=== PATIENT | female | born 1935 | race Caucasian/White ===

== ENCOUNTER → 2017-05-23 | Outpatient (CLI) | payer MEDICARE, OTHER ==
[2017-05-23 07:32] LABS: Urine RBC None Seen /hpf (0 - 4)
[2017-05-23 07:36] LABS: CONDITION Y; Hemoglobin 11.8 g/dL (12.2-16.2); Mean Corpuscular Hemoglobin 34.8 pg (28.0-32.0); Mean Corpuscular Hgb Conc. 35.1 g/dL (32.0-36.0); Mean Platelet Volume 6.8 fL (7.4-10.4); Neutrophils # (auto) 2.1 uL
[2017-05-23 07:39] LABS: Basophils # (auto) 0 uL; Basophils % (auto) 0.6 % (0.0-2.0); Eosinophils # (auto) 0.4 uL; Eosinophils % (auto) 7.7 % (0.0-7.0); Hematocrit 33.5 % (36.0-46.0); Lymphocytes # (auto) 1.4 uL; Lymphocytes % (auto) 30.2 % (10.0-50.0); Mean Corpuscular Volume 99.1 fL (80.0-100.0); Monocytes # (auto) 0.7 uL; Monocytes % (auto) 15.6 % (0.0-12.0); Neutrophils % (auto) 45.9 % (37.0-80.0); Platelet Count (auto) 295 10^3/uL (140-450); Red Cell Distribution Width 12.8 % (11.6-16.0); White Blood Cell 4.7 10^3/uL (4.4-10.8)
[2017-05-23 08:03] LABS: Albumin 3.4 g/dL (3.4-5.0); BUN/Creatinine Ratio 21.1; Bilirubin, Total 0.3 mg/dL (0.2-1.0); Calcium 8.9 mg/dL (8.5-10.1); Total Protein 7.6 g/dL (6.4-8.2)
[2017-05-23 08:19] LABS: Urine Bilirubin Negative (Negative); Urine Blood Negative /uL (Negative); Urine Color Yellow (Yellow); Urine Glucose Normal (Normal); Urine Ketone Negative (Negative); Urine Nitrite Negative (Negative); Urine Squamous Epithelial Cell FEW /hpf (<5); Urine Urobilinogen Normal (Negative); Urine pH 5.5 (5.0-8.0)
== END | disposition home or self-care (01) ==
LOC: LAB 07:10
PROVIDERS: ATTEND Family Medicine
DX: E11.21 Type 2 diabetes mellitus with diabetic nephropathy (principal); I10 Essential (primary) hypertension; E03.9 Hypothyroidism, unspecified; R56.9 Unspecified convulsions
CPT/HCPCS: 36415; 80053; 80061; 80185; 81001; 82043; 83036; 84443; 85025

== ENCOUNTER → 2017-10-03 | Outpatient (CLI) | payer MEDICARE, OTHER | END | disposition home or self-care (01) | LOC: LAB 10:48 | PROVIDERS: ATTEND Family Medicine | DX: H54.7 Unspecified visual loss (principal); E11.9 Type 2 diabetes mellitus without complications; I10 Essential (primary) hypertension | CPT/HCPCS: 36415; 85652; 86141 ==

== ENCOUNTER 2018-06-06 08:19 | Inpatient (IN) | payer MEDICARE, OTHER ==
[2018-06-06] VITALS (17 sets, daily range): BP systolic 138–182; BP diastolic 53–108
[~2018-06-06] VITALS: Ht 167.6 cm; Wt 63.6 kg
[2018-06-06] MEDS ORDERED: SODIUM CHLORIDE 0.9% 500 ML IV ONE (09:00)
[2018-06-06] MEDS ORDERED: SODIUM CHLORIDE 0.9% 1,000 ML IV ONE (10:06)
[2018-06-06 10:08] LABS: Hemoglobin 9.3 g/dL (12.2-16.2); White Blood Cell 3.8 10^3/uL (4.4-10.8)
[2018-06-06 10:10] LABS: Hematocrit 27.7 % (36.0-46.0); Mean Corpuscular Hemoglobin 34.7 pg (28.0-32.0); Mean Corpuscular Hgb Conc. 33.5 g/dL (32.0-36.0); Mean Corpuscular Volume 103.5 fL (80.0-100.0); Platelet Count (auto) 288 10^3/uL (140-450); Red Blood Cells 2.68 10^6/uL (4.0-5.20); Red Cell Distribution Width 13.8 % (11.8-14.3)
[2018-06-06 10:16] LABS: Basophils % (manual) 0 (0.0-2.0); Blast Cells 0; Eosinophils % (manual) 0 (0-7); Metamyelocytes % 0; Myelocytes % 0; Promyelocytes % 0; Reactive Lymphocytes 0
[2018-06-06 10:38] LABS: INR 2.92 (0.9-1.15); Partial Thromboplastin Time 41.7 sec (23.78-33.04); Prothrombin Time 29.4 sec (9.27-12.13)
[2018-06-06 10:39] LABS: Alanine Aminotransferase 43 U/L (13-56); Albumin 2.2 g/dL (3.4-5.0); Alkaline Phosphatase 54 U/L (45-117); Anion Gap 19 (5-15); Aspartate Aminotransferase 292 U/L (15-37); BUN/Creatinine Ratio 23.1; Bilirubin, Total 0.6 mg/dL (0.2-1.0); Calcium 8.2 mg/dL (8.5-10.1); Carbon Dioxide 16 mmol/L (21-32); Chloride 104 mmol/L (98-107); GFR African American 8 mL/min; GFR Non-African American 7 mL/min; Glucose 159 mg/dL (74-106); Potassium 3.8 mmol/L (3.5-5.1); Sodium 139 mmol/L (136-145); Total Protein 6.7 g/dL (6.4-8.2)
[2018-06-06 10:42] LABS: Blood Urea Nitrogen 146 mg/dL (7-18)
[2018-06-06 10:43] LABS: Magnesium 1.6 mg/dL (1.6-2.6)
[2018-06-06 10:51] LABS: Band Neutrophils % (manual) 2; Lymphocytes % (manual) 30 (10.0-50.0); Monocytes % (manual) 10 (0-12)
[2018-06-06] MEDS ORDERED: DEXTROSE (50%) 50ML SYRG IV PRN (11:15)
[2018-06-06] MEDS: ACCU-CHEK COMFORT CURVE STRIP VI SCH ×3 (11:30→22:00)
[2018-06-06] MEDS: InsuLIN REG 1unit/0.01ml Soln (100units/ml) SC SCH ×3 (11:30→22:39)
[2018-06-06 11:36] LABS: Urine Bacteria FEW /hpf (None Seen); Urine Blood 1+ /uL (Negative); Urine Specific Gravity 1.023 (1.001-1.035); Urine WBC 18 /hpf (0 - 5)
[2018-06-06] MEDS: Glucerna Carbsteady SHAKE Vanilla 8oz PO SCH ×2 (12:00→18:00)
[2018-06-06] MEDS ORDERED: DIAZEPAM 5 MG TAB PO PRN (12:00)
[2018-06-06] MEDS ORDERED: LEVOTHYROXINE SODIUM 50 MCG TAB PO ONE (12:00)
[2018-06-06] MEDS: SODIUM CHLORIDE 0.9% 1,000 ML IV SCH (12:06)
[2018-06-06] MEDS ORDERED: LORazepam 2MG/ML-1ML VIAL IV PRN (12:15)
[2018-06-06] MEDS ORDERED: NITROGLYCERIN 0.4 MG SL TAB SL PRN (12:15)
[2018-06-06] MEDS ORDERED: ONDANSETRON HCL 4 MG/2 ML VIAL IV PRN (12:15)
[2018-06-06] MEDS ORDERED: MORPHINE SULF INJ 2 MG/ML SYRINGE 1ML IV PRN ×2 (12:15)
[2018-06-06] MEDS ORDERED: ACETAMINOPHEN 325 MG TAB PO PRN (12:15)
[2018-06-06] MEDS: FENOFIBRIC ACID 135 MG PO SCH (12:30)
[2018-06-06] MEDS ORDERED: CARV20CA (12:35)
[2018-06-06] MEDS ORDERED: SERT-160 (12:35)
[2018-06-06] MEDS ORDERED: CLOP75TA41 (12:35)
[2018-06-06] MEDS ORDERED: DIAZ5TAB3 (12:35)
[2018-06-06] MEDS ORDERED: CHOL135C6 (12:35)
[2018-06-06] MEDS ORDERED: PHE100C (12:35)
[2018-06-06] MEDS ORDERED: MICARDIS (12:35)
[2018-06-06] MEDS ORDERED: ATOR40TA52 (12:35)
[2018-06-06] MEDS ORDERED: HYDR-4072 (12:35)
[2018-06-06] MEDS ORDERED: LEVO200T7 (12:35)
[2018-06-06] MEDS: IPRATROPIUM BROM 0.5 MG/2.5ML INH SOL NEB SCH ×2 (13:29→22:09)
[2018-06-06] MEDS: ALBUTEROL SULF 2.5 MG/0.5ML(0.5%) NEB SOLN NEB SCH ×2 (13:30→22:09)
[2018-06-06] MEDS ORDERED: cefTRIAXone 1GM/10ml IVPUSH 10 ML IV ONE (14:30)
[2018-06-06 14:40] LABS: Hematocrit 24.7 % (36.0-46.0)
[2018-06-06 14:41] LABS: Hemoglobin 8.7 g/dL (12.2-16.2)
[2018-06-06] MEDS ORDERED: metroNIDAZOLE 500MG/100ML 100 ML IV SCH (15:00)
[2018-06-06] MEDS ORDERED: PHYTONADIONE (VIT K)10 MG/ML 1ML VIAL SUBCUT ONE (15:15)
[2018-06-06] MEDS ORDERED: LORazepam 2MG/ML-1ML VIAL IV ONE (16:30)
[2018-06-06 16:46] LABS: Lactic Acid w/Reflex 2.6 mmol/L (0.4-2.0)
[2018-06-06] MEDS ORDERED: LORazepam 0.5 MG TAB PO ONE (18:00)
[2018-06-06] MEDS: CALCIUM W/VIT D (600MG/400IU) TAB PO SCH (19:41)
[2018-06-06 19:53] LABS: Hematocrit 20.4 % (36.0-46.0); Hemoglobin 7.1 g/dL (12.2-16.2)
[2018-06-06 20:22] LABS: BUN/Creatinine Ratio 28.2; Calcium 8.2 mg/dL (8.5-10.1); Potassium 3.4 mmol/L (3.5-5.1)
[2018-06-06] MEDS: PHENYTOIN SODIUM 100 MG CAP PO SCH (22:00)
[2018-06-06] MEDS: ATORVASTATIN 20 MG TAB PO SCH (22:00)
[2018-06-06] MEDS ORDERED: PANTOPRAZOLE 40 MG/10 ML VIAL IV SCH (22:00)
[2018-06-07] VITALS (16 sets, daily range): BP systolic 127–158; BP diastolic 42–87
[2018-06-07] MEDS ORDERED: DILTIAZEM HCL 25 MG/5 ML VIAL IV ONE (03:00)
[2018-06-07 05:49] LABS: Basophils # (auto) 0 uL; Eosinophils # (auto) 0 uL; Lymphocytes # (auto) 0.9 uL; Monocytes # (auto) 0.5 uL; Red Cell Distribution Width 16.1 % (11.8-14.3); White Blood Cell 3.2 10^3/uL (4.4-10.8)
[2018-06-07 05:54] LABS: Basophils % (auto) 0.7 % (0.0-2.0); Eosinophils % (auto) 1.2 % (0.0-7.0); Hematocrit 18.8 % (36.0-46.0); Lymphocytes % (auto) 27.5 % (10.0-50.0); Mean Corpuscular Hemoglobin 34.7 pg (28.0-32.0); Mean Corpuscular Hgb Conc. 34.5 g/dL (32.0-36.0); Mean Corpuscular Volume 100.4 fL (80.0-100.0); Monocytes % (auto) 16.1 % (0.0-12.0); Neutrophils # (auto) 1.7 uL; Neutrophils % (auto) 54.5 % (37.0-80.0); Nucleated Red Blood Cells % 0.3 %; Platelet Count (auto) 178 10^3/uL (140-450); Red Blood Cells 1.88 10^6/uL (4.0-5.20)
[2018-06-07 06:00] LABS: Albumin 2.6 g/dL (3.4-5.0); Bilirubin, Total 0.6 mg/dL (0.2-1.0); Total Protein 6.5 g/dL (6.4-8.2)
[2018-06-07 06:02] LABS: Hemoglobin 6.5 g/dL (12.2-16.2)
[2018-06-07 06:23] LABS: Potassium 2.9 mmol/L (3.5-5.1)
[2018-06-07] MEDS: IPRATROPIUM BROM 0.5 MG/2.5ML INH SOL NEB SCH ×3 (06:30→22:27)
[2018-06-07] MEDS: ALBUTEROL SULF 2.5 MG/0.5ML(0.5%) NEB SOLN NEB SCH ×3 (06:30→22:27)
[2018-06-07] MEDS: SODIUM CHLORIDE 0.9% 1,000 ML IV SCH ×2 (06:30→21:26)
[2018-06-07 06:31] LABS: BUN/Creatinine Ratio 34.4
[2018-06-07] MEDS: ACCU-CHEK COMFORT CURVE STRIP VI SCH ×4 (06:42→22:57)
[2018-06-07] MEDS: InsuLIN REG 1unit/0.01ml Soln (100units/ml) SC SCH ×4 (06:43→23:22)
[2018-06-07 07:27] LABS: INR 1.28 (0.9-1.15); Prothrombin Time 13.5 sec (9.27-12.13)
[2018-06-07] MEDS: CALCIUM W/VIT D (600MG/400IU) TAB PO SCH ×2 (08:00→17:43)
[2018-06-07] MEDS: Glucerna Carbsteady SHAKE Vanilla 8oz PO SCH ×3 (08:00→17:43)
[2018-06-07] MEDS ORDERED: NALOXONE HCL 0.4 MG/ML VIAL ONE (08:23)
[2018-06-07] MEDS ORDERED: FLUMAZENIL 0.1 MG/ML INJ 10ML MDV IV ONE (08:23)
[2018-06-07] MEDS ORDERED: SODIUM CHLORIDE LOCK 10 ML ONE (08:23)
[2018-06-07] MEDS ORDERED: LIDOCAINE VISCOUS 2% 15ML UD ONE (08:23)
[2018-06-07] MEDS ORDERED: POTASSIUM CHL 20 Meq TABLET PO ONE (08:30)
[2018-06-07] MEDS ORDERED: MICARDIS HCT PO SCH (10:00)
[2018-06-07] MEDS: MULTIPLE VITAMIN TAB PO SCH (10:00)
[2018-06-07] MEDS ORDERED: PANTOPRAZOLE 40 MG TAB PO SCH (10:00)
[2018-06-07] MEDS: fentaNYL CITRATE 100 MCG/2 ML VL ONE ×2 (10:41→10:44)
[2018-06-07] MEDS: MIDAZOLAM HCL 5 MG/ML-1ML VIAL ONE ×2 (10:41→10:44)
[2018-06-07] MEDS: metroNIDAZOLE 500MG/100ML 100 ML IV SCH ×2 (11:58→17:43)
[2018-06-07] MEDS: cefTRIAXone 1GM/10ml IVPUSH 10 ML IV SCH (11:58)
[2018-06-07] MEDS: FENOFIBRIC ACID 135 MG PO SCH (12:00)
[2018-06-07] MEDS: PHENYTOIN SODIUM 100 MG CAP PO SCH ×2 (12:33→22:57)
[2018-06-07] MEDS: SERTRALINE HCL 50 MG TAB PO SCH (12:38)
[2018-06-07 13:21] LABS: Hemoglobin 9.2 g/dL (12.2-16.2)
[2018-06-07 13:23] LABS: Hematocrit 25.7 % (36.0-46.0)
[2018-06-07] MEDS: ATORVASTATIN 20 MG TAB PO SCH (22:00)
[2018-06-08] VITALS (7 sets, daily range): BP systolic 142–163; BP diastolic 74–88
[2018-06-08] MEDS: metroNIDAZOLE 500MG/100ML 100 ML IV SCH ×3 (01:27→18:48)
[2018-06-08] MEDS: HYDROcodone-ACET 10/325MG TAB PO PRN ×3 (01:32→20:30)
[2018-06-08] MEDS: IPRATROPIUM BROM 0.5 MG/2.5ML INH SOL NEB SCH ×3 (06:02→22:00)
[2018-06-08] MEDS: ACCU-CHEK COMFORT CURVE STRIP VI SCH ×4 (06:02→22:41)
[2018-06-08] MEDS: ALBUTEROL SULF 2.5 MG/0.5ML(0.5%) NEB SOLN NEB SCH ×3 (06:02→22:00)
[2018-06-08] MEDS: InsuLIN REG 1unit/0.01ml Soln (100units/ml) SC SCH ×4 (06:03→22:41)
[2018-06-08 06:28] LABS: Mean Corpuscular Hgb Conc. 35.9 g/dL (32.0-36.0); Platelet Count (auto) 230 10^3/uL (140-450)
[2018-06-08 06:36] LABS: Hematocrit 25.9 % (36.0-46.0); Hemoglobin 9.3 g/dL (12.2-16.2); Mean Corpuscular Hemoglobin 34.5 pg (28.0-32.0); Mean Corpuscular Volume 96.1 fL (80.0-100.0); Red Cell Distribution Width 16.9 % (11.8-14.3)
[2018-06-08 06:46] LABS: Basophils % (manual) 0 (0.0-2.0); Blast Cells 0; Metamyelocytes % 0; Myelocytes % 0; Promyelocytes % 0; Reactive Lymphocytes 0
[2018-06-08 06:53] LABS: Albumin 2.9 g/dL (3.4-5.0); Bilirubin, Total 0.6 mg/dL (0.2-1.0); Calcium 8.2 mg/dL (8.5-10.1)
[2018-06-08 07:14] LABS: Potassium 2.5 mmol/L (3.5-5.1)
[2018-06-08 07:15] LABS: BUN/Creatinine Ratio 40.2
[2018-06-08 07:48] LABS: Band Neutrophils % (manual) 4; Eosinophils % (manual) 2 (0-7); Lymphocytes % (manual) 23 (10.0-50.0); Monocytes % (manual) 9 (0-12)
[2018-06-08] MEDS: Glucerna Carbsteady SHAKE Vanilla 8oz PO SCH ×3 (09:59→18:48)
[2018-06-08] MEDS ORDERED: FAMOTIDINE 20 MG TAB PO SCH (10:00)
[2018-06-08] MEDS: MULTIPLE VITAMIN TAB PO SCH (10:06)
[2018-06-08] MEDS: SERTRALINE HCL 50 MG TAB PO SCH (10:06)
[2018-06-08] MEDS: cefTRIAXone 1GM/10ml IVPUSH 10 ML IV SCH (10:06)
[2018-06-08] MEDS: PHENYTOIN SODIUM 100 MG CAP PO SCH ×2 (10:06→21:35)
[2018-06-08] MEDS: PANTOPRAZOLE 40 MG TAB PO SCH (10:06)
[2018-06-08] MEDS: CALCIUM W/VIT D (600MG/400IU) TAB PO SCH ×2 (10:06→18:49)
[2018-06-08] MEDS: FENOFIBRIC ACID 135 MG PO SCH (12:00)
[2018-06-08] MEDS: POTASSIUM CHL 20MEQ/100ML 100 ML IV SCH ×3 (12:02→16:35)
[2018-06-08] MEDS ORDERED: cloNIDine HCL 0.1 MG TAB PO PRN (12:15)
[2018-06-08] MEDS: SODIUM CHLORIDE 0.9% 1,000 ML IV SCH (15:23)
[2018-06-08 17:53] LABS: BUN/Creatinine Ratio 43.8; Calcium 7.7 mg/dL (8.5-10.1)
[2018-06-08 17:56] LABS: Potassium 2.8 mmol/L (3.5-5.1)
[2018-06-08] MEDS: ATORVASTATIN 20 MG TAB PO SCH (21:35)
[2018-06-09] VITALS (7 sets, daily range): BP systolic 142–162; BP diastolic 69–84
[2018-06-09] MEDS: TEMAZEPAM 15 MG CAP PO PRN (00:12)
[2018-06-09] MEDS: metroNIDAZOLE 500MG/100ML 100 ML IV SCH ×3 (01:47→17:47)
[2018-06-09 05:27] LABS: Hematocrit 23.9 % (36.0-46.0); Hemoglobin 8.6 g/dL (12.2-16.2); Mean Corpuscular Hemoglobin 34.8 pg (28.0-32.0); Mean Corpuscular Hgb Conc. 35.8 g/dL (32.0-36.0); Mean Corpuscular Volume 97.1 fL (80.0-100.0); Platelet Count (auto) 183 10^3/uL (140-450); Red Blood Cells 2.46 10^6/uL (4.0-5.20); Red Cell Distribution Width 16.4 % (11.8-14.3)
[2018-06-09 05:39] LABS: Basophils % (manual) 0 (0.0-2.0); Blast Cells 0; Metamyelocytes % 0; Myelocytes % 0; Promyelocytes % 0; Reactive Lymphocytes 0
[2018-06-09 05:45] LABS: Albumin 2.4 g/dL (3.4-5.0); BUN/Creatinine Ratio 47.5; Bilirubin, Total 0.5 mg/dL (0.2-1.0); Calcium 7.3 mg/dL (8.5-10.1); Total Protein 6.3 g/dL (6.4-8.2)
[2018-06-09 05:51] LABS: Potassium 2.9 mmol/L (3.5-5.1)
[2018-06-09] MEDS: ALBUTEROL SULF 2.5 MG/0.5ML(0.5%) NEB SOLN NEB SCH ×3 (06:02→22:45)
[2018-06-09] MEDS: IPRATROPIUM BROM 0.5 MG/2.5ML INH SOL NEB SCH ×3 (06:02→22:45)
[2018-06-09] MEDS: SODIUM CHLORIDE 0.9% 1,000 ML IV SCH (06:12)
[2018-06-09] MEDS: InsuLIN REG 1unit/0.01ml Soln (100units/ml) SC SCH ×4 (06:14→21:46)
[2018-06-09] MEDS: ACCU-CHEK COMFORT CURVE STRIP VI SCH ×4 (06:14→21:46)
[2018-06-09] MEDS ORDERED: POTASSIUM CHL 20 Meq TABLET PO ONE (06:45)
[2018-06-09 07:16] LABS: Band Neutrophils % (manual) 4; Eosinophils % (manual) 4 (0-7); Monocytes % (manual) 8 (0-12)
[2018-06-09 07:17] LABS: Lymphocytes % (manual) 29 (10.0-50.0)
[2018-06-09] MEDS: CALCIUM W/VIT D (600MG/400IU) TAB PO SCH ×2 (09:58→17:46)
[2018-06-09] MEDS: cefTRIAXone 1GM/10ml IVPUSH 10 ML IV SCH (09:58)
[2018-06-09] MEDS: PHENYTOIN SODIUM 100 MG CAP PO SCH ×2 (09:59→21:45)
[2018-06-09] MEDS: MAGNESIUM SULFATE 1GM/100ML 100 ML IV SCH ×2 (09:59→11:43)
[2018-06-09] MEDS: MULTIPLE VITAMIN TAB PO SCH (09:59)
[2018-06-09] MEDS: PANTOPRAZOLE 40 MG TAB PO SCH (09:59)
[2018-06-09] MEDS: SERTRALINE HCL 50 MG TAB PO SCH (09:59)
[2018-06-09] MEDS ORDERED: LEVOFLOXACIN 500MG 100 ML IV ONE (10:15)
[2018-06-09] MEDS: Glucerna Carbsteady SHAKE Vanilla 8oz PO SCH ×3 (11:42→17:48)
[2018-06-09] MEDS: SODIUM BICARBONATE 50ML VIAL 50 ML in SOD CHL 0.45% WITH 20MEQ KCL 1,000 ML IV SCH ×2 (11:43→20:30)
[2018-06-09] MEDS: FENOFIBRIC ACID 135 MG PO SCH ×2 (11:44→12:00)
[2018-06-09] MEDS: HYDROcodone-ACET 10/325MG TAB PO PRN (12:24)
[2018-06-09] MEDS: ATORVASTATIN 20 MG TAB PO SCH (21:45)
[2018-06-10] MEDS: metroNIDAZOLE 500MG/100ML 100 ML IV SCH ×3 (02:01→17:43)
[2018-06-10] MEDS ORDERED: SOD CHL 0.45% WITH 20MEQ KCL 1,000 ML IV ONE (02:38)
[2018-06-10] MEDS ORDERED: SODIUM BICARBONATE 8.4 % INJ 50ML VIAL IV ONE (02:39)
[2018-06-10] MEDS: SODIUM BICARBONATE 50ML VIAL 50 ML in SOD CHL 0.45% WITH 20MEQ KCL 1,000 ML IV SCH ×2 (02:44→16:50)
[2018-06-10 05:41] LABS: Hemoglobin 8.5 g/dL (12.2-16.2)
[2018-06-10 05:44] LABS: Hematocrit 23.6 % (36.0-46.0); Mean Corpuscular Hgb Conc. 36.1 g/dL (32.0-36.0); Mean Corpuscular Volume 97.1 fL (80.0-100.0); Platelet Count (auto) 178 10^3/uL (140-450); Red Blood Cells 2.43 10^6/uL (4.0-5.20); Red Cell Distribution Width 16.1 % (11.8-14.3); White Blood Cell 7.2 10^3/uL (4.4-10.8)
[2018-06-10 05:56] LABS: Basophils % (manual) 0 (0.0-2.0); Blast Cells 0; Metamyelocytes % 0; Myelocytes % 0; Promyelocytes % 0; Reactive Lymphocytes 0
[2018-06-10 06:12] LABS: Potassium 3.5 mmol/L (3.5-5.1)
[2018-06-10 06:13] LABS: Albumin 2.3 g/dL (3.4-5.0); BUN/Creatinine Ratio 47.4; Bilirubin, Total 0.4 mg/dL (0.2-1.0); Calcium 7.1 mg/dL (8.5-10.1); Phosphorus 1.3 mg/dL (2.5-4.90); Total Protein 6.1 g/dL (6.4-8.2)
[2018-06-10] MEDS: ACCU-CHEK COMFORT CURVE STRIP VI SCH ×4 (06:36→21:50)
[2018-06-10] MEDS: InsuLIN REG 1unit/0.01ml Soln (100units/ml) SC SCH ×4 (06:37→21:51)
[2018-06-10] MEDS: IPRATROPIUM BROM 0.5 MG/2.5ML INH SOL NEB SCH ×3 (07:06→21:46)
[2018-06-10] MEDS: ALBUTEROL SULF 2.5 MG/0.5ML(0.5%) NEB SOLN NEB SCH ×3 (07:06→21:46)
[2018-06-10 08:17] LABS: Band Neutrophils % (manual) 4; Eosinophils % (manual) 5 (0-7); Lymphocytes % (manual) 20 (10.0-50.0); Monocytes % (manual) 13 (0-12)
[2018-06-10 09:00] VITALS: BP 130/73
[2018-06-10] MEDS: LEVOFLOXACIN 250MG 50 ML IV SCH (09:21)
[2018-06-10] MEDS: PHENYTOIN SODIUM 100 MG CAP PO SCH ×2 (09:22→21:50)
[2018-06-10] MEDS: MULTIPLE VITAMIN TAB PO SCH (09:22)
[2018-06-10] MEDS: cefTRIAXone 1GM/10ml IVPUSH 10 ML IV SCH (09:22)
[2018-06-10] MEDS: PANTOPRAZOLE 40 MG TAB PO SCH (09:22)
[2018-06-10] MEDS: CALCIUM W/VIT D (600MG/400IU) TAB PO SCH ×2 (09:22→17:43)
[2018-06-10] MEDS: SERTRALINE HCL 50 MG TAB PO SCH (09:23)
[2018-06-10] MEDS: Glucerna Carbsteady SHAKE Vanilla 8oz PO SCH ×3 (09:24→18:00)
[2018-06-10] MEDS: HYDROcodone-ACET 10/325MG TAB PO PRN (11:10)
[2018-06-10] MEDS: FENOFIBRIC ACID 135 MG PO SCH (11:25)
[2018-06-10] MEDS ORDERED: POTASSIUM PHOSPHATE 44 MEQ in D5W 5% 250 ML IV ONE (11:30)
[2018-06-10 12:31] LABS: Protein, Urine 6.4 mg/dL (0.0-11.9)
[2018-06-10 12:34] LABS: % Iron Saturation 32.4 % (15-50)
[2018-06-10 13:00] VITALS: BP 140/59
[2018-06-10 17:00] VITALS: BP 149/76
[2018-06-10] MEDS: ATORVASTATIN 20 MG TAB PO SCH (21:50)
[2018-06-10 22:06] VITALS: BP 150/63
[2018-06-11] MEDS: metroNIDAZOLE 500MG/100ML 100 ML IV SCH ×2 (01:52→09:17)
[2018-06-11] MEDS: SODIUM BICARBONATE 50ML VIAL 50 ML in SOD CHL 0.45% WITH 20MEQ KCL 1,000 ML IV SCH ×3 (04:00→21:33)
[2018-06-11 05:04] VITALS: BP 141/57
[2018-06-11 06:32] LABS: Phosphorus 2.6 mg/dL (2.5-4.90)
[2018-06-11 06:36] LABS: Albumin 2.3 g/dL (3.4-5.0); BUN/Creatinine Ratio 31.6; Bilirubin, Total 0.4 mg/dL (0.2-1.0); Calcium 6.8 mg/dL (8.5-10.1); Potassium 3.8 mmol/L (3.5-5.1)
[2018-06-11] MEDS: ACCU-CHEK COMFORT CURVE STRIP VI SCH ×4 (06:50→21:33)
[2018-06-11] MEDS: InsuLIN REG 1unit/0.01ml Soln (100units/ml) SC SCH ×4 (06:50→22:30)
[2018-06-11] MEDS: ALBUTEROL SULF 2.5 MG/0.5ML(0.5%) NEB SOLN NEB SCH ×3 (07:07→21:22)
[2018-06-11] MEDS: IPRATROPIUM BROM 0.5 MG/2.5ML INH SOL NEB SCH ×3 (07:07→21:22)
[2018-06-11] MEDS: CALCIUM W/VIT D (600MG/400IU) TAB PO SCH ×2 (08:51→17:45)
[2018-06-11] MEDS: Glucerna Carbsteady SHAKE Vanilla 8oz PO SCH ×3 (08:52→17:45)
[2018-06-11] MEDS: cefTRIAXone 1GM/10ml IVPUSH 10 ML IV SCH (09:04)
[2018-06-11 09:14] VITALS: BP 161/83
[2018-06-11] MEDS: MULTIPLE VITAMIN TAB PO SCH (09:16)
[2018-06-11] MEDS: SERTRALINE HCL 50 MG TAB PO SCH (09:17)
[2018-06-11] MEDS: PANTOPRAZOLE 40 MG TAB PO SCH (09:17)
[2018-06-11] MEDS: PHENYTOIN SODIUM 100 MG CAP PO SCH ×2 (09:17→21:32)
[2018-06-11] MEDS: LEVOFLOXACIN 250MG 50 ML IV SCH (09:17)
[2018-06-11] MEDS ORDERED: POTASSIUM CHL 20 Meq TABLET PO ONE (10:30)
[2018-06-11] MEDS: MAGNESIUM SULFATE 1GM/100ML 100 ML IV SCH ×4 (11:52→14:09)
[2018-06-11] MEDS: FENOFIBRIC ACID 135 MG PO SCH (12:00)
[2018-06-11 12:47] VITALS: BP 160/76
[2018-06-11 17:30] VITALS: BP 155/70
[2018-06-11] MEDS: HYDROcodone-ACET 10/325MG TAB PO PRN (21:32)
[2018-06-11] MEDS: TEMAZEPAM 15 MG CAP PO PRN (21:32)
[2018-06-11] MEDS: ATORVASTATIN 20 MG TAB PO SCH (21:32)
[2018-06-11 22:00] VITALS: BP 152/71
[2018-06-12 05:02] VITALS: BP 149/67
[2018-06-12] MEDS: ACCU-CHEK COMFORT CURVE STRIP VI SCH ×2 (05:57→11:54)
[2018-06-12] MEDS: InsuLIN REG 1unit/0.01ml Soln (100units/ml) SC SCH ×2 (05:57→11:54)
[2018-06-12] MEDS: IPRATROPIUM BROM 0.5 MG/2.5ML INH SOL NEB SCH ×2 (06:14→14:37)
[2018-06-12] MEDS: ALBUTEROL SULF 2.5 MG/0.5ML(0.5%) NEB SOLN NEB SCH ×2 (06:14→14:37)
[2018-06-12 06:23] LABS: Albumin 2.3 g/dL (3.4-5.0); BUN/Creatinine Ratio 23.2; Bilirubin, Total 0.5 mg/dL (0.2-1.0); Potassium 4.2 mmol/L (3.5-5.1); Total Protein 5.8 g/dL (6.4-8.2)
[2018-06-12 08:02] VITALS: BP 140/78
[2018-06-12 09:29] VITALS: BP 140/78
[2018-06-12] MEDS: SERTRALINE HCL 50 MG TAB PO SCH (10:18)
[2018-06-12] MEDS: MULTIPLE VITAMIN TAB PO SCH (10:18)
[2018-06-12] MEDS: PANTOPRAZOLE 40 MG TAB PO SCH (10:18)
[2018-06-12] MEDS: PHENYTOIN SODIUM 100 MG CAP PO SCH (10:18)
[2018-06-12] MEDS: CALCIUM W/VIT D (600MG/400IU) TAB PO SCH (10:19)
[2018-06-12] MEDS: LEVOFLOXACIN 250MG 50 ML IV SCH (10:19)
[2018-06-12] MEDS: Glucerna Carbsteady SHAKE Vanilla 8oz PO SCH ×2 (10:19→13:37)
[2018-06-12] MEDS: FENOFIBRIC ACID 135 MG PO SCH (11:55)
[2018-06-12 12:28] VITALS: BP 147/65
[2018-06-12] MEDS: HYDROcodone-ACET 10/325MG TAB PO PRN (13:37)
== END 2018-06-12 16:12 | disposition home or self-care (01) | DRG 871 ==
LOC: EDBD 08:19 → ER 08:25 → TELE 08:26 → TELE-WESTW 18:44
PROVIDERS: ADMIT Internal Medicine; ATTEND Family Medicine
PROC: 30233L1 Transfusion of Nonautologous Fresh Plasma into Peripheral Vein, Percutaneous Approach (ICD-10-PCS; 2018-06-06)
PROC: 30233N1 Transfusion of Nonautologous Red Blood Cells into Peripheral Vein, Percutaneous Approach (ICD-10-PCS; 2018-06-06)
PROC: 30233K1 Transfusion of Nonautologous Frozen Plasma into Peripheral Vein, Percutaneous Approach (ICD-10-PCS; 2018-06-06)
PROC: 0DJ08ZZ Inspection of Upper Intestinal Tract, Via Natural or Artificial Opening Endoscopic (ICD-10-PCS; principal; 2018-06-07 10:36)
DX: A41.9 Sepsis, unspecified organism (principal); G92 Toxic encephalopathy; E43 Unspecified severe protein-calorie malnutrition; N17.0 Acute kidney failure with tubular necrosis; K29.71 Gastritis, unspecified, with bleeding; N39.0 Urinary tract infection, site not specified; D68.9 Coagulation defect, unspecified; D62 Acute posthemorrhagic anemia; E11.21 Type 2 diabetes mellitus with diabetic nephropathy; E83.51 Hypocalcemia; D53.9 Nutritional anemia, unspecified; D63.8 Anemia in other chronic diseases classified elsewhere; F32.9 Major depressive disorder, single episode, unspecified; E87.6 Hypokalemia; E86.0 Dehydration; E83.42 Hypomagnesemia; E78.00 Pure hypercholesterolemia, unspecified; E83.39 Other disorders of phosphorus metabolism; F41.9 Anxiety disorder, unspecified; B96.20 Unspecified Escherichia coli [E. coli] as the cause of diseases classified elsewhere; G40.909 Epilepsy, unspecified, not intractable, without status epilepticus; I10 Essential (primary) hypertension; J44.9 Chronic obstructive pulmonary disease, unspecified; Z79.01 Long term (current) use of anticoagulants; Z90.49 Acquired absence of other specified parts of digestive tract; Z88.0 Allergy status to penicillin; Z90.710 Acquired absence of both cervix and uterus; Z68.22 Body mass index [BMI] 22.0-22.9, adult
CPT/HCPCS: 36415; 36430; 43235; 51702; 71045; 74176; 76775; 80048; 80053; 81001; 82270; 82570; 82962; 83010; 83036; 83540; 83550; 83605; 83615; 83690; 83735; 84100; 84156; 84300; 84443; 84484; 85007; 85014; 85018; 85025; 85027; 85045; 85610; 85730; 86850; 86880; 86900; 86901; 86920; 87040; 87086; 87088; 87186; 93005; 93306; 94640; 96361; 96372; 96374; 96375; 97110; 97116; 97530; A6257; C9113; J0696; J1815; J1956; J2250; J3430; J3480; J3490; J7060

== ENCOUNTER → 2018-08-01 | Outpatient (CLI) | payer MEDICARE, OTHER ==
[~2018-08-01] MED LIST: ATOR40TA52 PO; CALC1TAB64 PO; CARV20CA; CHOL135C6; CHOL1CAP50 PO; CLOP75TA41 PO; DIAZ5TAB3 PO; FERR-20 PO; HYDR-4072 PO; LEVO125T7 PO; LEVO200T7; MICARDIS; PANT40TA2 PO; PHE100C PO; SERT-160 PO; TELM80TA3 PO
== END | disposition home or self-care (01) ==
LOC: XYW 10:15
PROVIDERS: ATTEND Internal Medicine
DX: I25.10 Atherosclerotic heart disease of native coronary artery without angina pectoris (principal)
CPT/HCPCS: 93306

== ENCOUNTER → 2018-08-06 | Day surgery (SDC) | payer MEDICARE, OTHER ==
[2018-08-02 11:14] LABS: Basophils # (auto) 0.1 uL; Eosinophils # (auto) 0.3 uL; Monocytes # (auto) 0.7 uL
[2018-08-02 11:16] LABS: Basophils % (auto) 1.2 % (0.0-2.0); Hematocrit 35.7 % (36.0-46.0); Hemoglobin 12.1 g/dL (12.2-16.2); Lymphocytes # (auto) 2.2 uL; Lymphocytes % (auto) 38.2 % (10.0-50.0); Mean Corpuscular Hemoglobin 36.2 pg (28.0-32.0); Mean Corpuscular Hgb Conc. 33.9 g/dL (32.0-36.0); Mean Corpuscular Volume 106.8 fL (80.0-100.0); Monocytes % (auto) 12.4 % (0.0-12.0); Neutrophils # (auto) 2.4 uL; Neutrophils % (auto) 42.2 % (37.0-80.0); Nucleated Red Blood Cells % 0.1 %; Platelet Count (auto) 280 10^3/uL (140-450); Red Blood Cells 3.34 10^6/uL (4.0-5.20); Red Cell Distribution Width 14.2 % (11.8-14.3); White Blood Cell 5.7 10^3/uL (4.4-10.8)
[2018-08-02 11:28] LABS: Partial Thromboplastin Time 22.7 sec (23.78-33.04); Prothrombin Time 10.7 sec (9.27-12.13)
[~2018-08-06] VITALS: Ht 152.4 cm; Wt 54.4 kg
[~2018-08-06] MED LIST changes: -CARV20CA; -CHOL135C6; +FLUMAZENIL 0.1 MG/ML INJ 10ML MDV IV ONE; -LEVO200T7; -MICARDIS; +MIDAZOLAM HCL 5 MG/ML-1ML VIAL ONE; +NALOXONE HCL 0.4 MG/ML VIAL ONE; +SODIUM CHLORIDE LOCK 10 ML ONE; +diphenhdrAMINE 50mg/ml (500mg/10ml VIAL) ONE; +fentaNYL CITRATE 100 MCG/2 ML VL ONE
[2018-08-06] MEDS: MIDAZOLAM HCL 5 MG/ML-1ML VIAL ONE ×3 (09:17→09:24)
[2018-08-06] MEDS: fentaNYL CITRATE 100 MCG/2 ML VL ONE ×3 (09:17→09:24)
[2018-08-06 10:15] VITALS: BP 168/81
== END | disposition home or self-care (01) ==
LOC: GI 07:39
PROVIDERS: ATTEND Internal Medicine Gastroenterology
DX: K57.30 Diverticulosis of large intestine without perforation or abscess without bleeding (principal); K64.8 Other hemorrhoids; E66.9 Obesity, unspecified; F41.9 Anxiety disorder, unspecified; F32.9 Major depressive disorder, single episode, unspecified; E89.0 Postprocedural hypothyroidism; R56.9 Unspecified convulsions; J98.9 Respiratory disorder, unspecified; I34.1 Nonrheumatic mitral (valve) prolapse; Z88.0 Allergy status to penicillin; Z88.2 Allergy status to sulfonamides; Z90.710 Acquired absence of both cervix and uterus; Z90.49 Acquired absence of other specified parts of digestive tract; Z98.890 Other specified postprocedural states; Z79.899 Other long term (current) drug therapy
CPT/HCPCS: 36415; 45378; 82962; 85025; 85610; 85730; J1200; J2250; J3010; J7030; G0500

== ENCOUNTER → 2018-09-18 | Outpatient (CLI) | payer MEDICARE, OTHER ==
[~2018-09-18] MED LIST changes: -FLUMAZENIL 0.1 MG/ML INJ 10ML MDV IV ONE; -MIDAZOLAM HCL 5 MG/ML-1ML VIAL ONE; -NALOXONE HCL 0.4 MG/ML VIAL ONE; -SODIUM CHLORIDE LOCK 10 ML ONE; -diphenhdrAMINE 50mg/ml (500mg/10ml VIAL) ONE; -fentaNYL CITRATE 100 MCG/2 ML VL ONE
== END | disposition home or self-care (01) ==
LOC: Rad HDHVI 12:50
PROVIDERS: ATTEND Internal Medicine Cardiovascular Disease
DX: I34.0 Nonrheumatic mitral (valve) insufficiency (principal); I35.0 Nonrheumatic aortic (valve) stenosis; I65.22 Occlusion and stenosis of left carotid artery; I25.10 Atherosclerotic heart disease of native coronary artery without angina pectoris
CPT/HCPCS: 93306; 93880

== ENCOUNTER → 2018-09-20 | Outpatient (CLI) | payer MEDICARE, OTHER ==
[~2018-09-20] VITALS: Ht 152.4 cm; Wt 55.3 kg
[~2018-09-20] MED LIST changes: +ADENOSINE 46 MG in GIVE UN-DILUTED 0 ML IV ONE; +ADENOSINE 90 MG/30 ML INJ IV ONE
== END | disposition home or self-care (01) ==
LOC: Rad HDHVI 13:57
PROVIDERS: ATTEND Internal Medicine Cardiovascular Disease
DX: I35.0 Nonrheumatic aortic (valve) stenosis (principal); I25.10 Atherosclerotic heart disease of native coronary artery without angina pectoris; I34.0 Nonrheumatic mitral (valve) insufficiency; R06.00 Dyspnea, unspecified; R56.9 Unspecified convulsions
CPT/HCPCS: 78452; 93005; 96374; 96375; A9500; J0153

== ENCOUNTER → 2018-10-09 | Outpatient (CLI) | payer MEDICARE, OTHER ==
[~2018-10-09] MED LIST changes: -ADENOSINE 46 MG in GIVE UN-DILUTED 0 ML IV ONE; -ADENOSINE 90 MG/30 ML INJ IV ONE; +FLUT500M2 INH
[2018-10-09 09:15] VITALS: BP 137/65
[2018-10-09 09:30] VITALS: BP 152/51
--- NOTE | 2018-10-09 09:30 | NUR ---
IN TO CLINIC FOR PRE-OP ANGIO FOR 10/11/18 Pre-Op Discharge Summary: See e-MAR for any medications given for this visit. Pre-op orders received and carried out per MD of EKG, LABS and chest xrays. Patient given a copy of EKG with instructions to go to H out patient for further follow up care.
[2018-10-09 11:59] LABS: Basophils # (auto) 0.1 uL; Basophils % (auto) 1.3 % (0.0-2.0); Hemoglobin 11.7 g/dL (12.2-16.2); Nucleated Red Blood Cells % 0.1 %; Red Cell Distribution Width 12.4 % (11.8-14.3)
[2018-10-09 12:01] LABS: Eosinophils # (auto) 0.4 uL; Eosinophils % (auto) 6.7 % (0.0-7.0); Hematocrit 34.9 % (36.0-46.0); Lymphocytes # (auto) 1.9 uL; Mean Corpuscular Hemoglobin 35.2 pg (28.0-32.0); Mean Corpuscular Hgb Conc. 33.6 g/dL (32.0-36.0); Mean Corpuscular Volume 104.9 fL (80.0-100.0); Monocytes # (auto) 0.6 uL; Monocytes % (auto) 9.4 % (0.0-12.0); Neutrophils # (auto) 3.7 uL; Neutrophils % (auto) 54.6 % (37.0-80.0); Platelet Count (auto) 364 10^3/uL (140-450); Red Blood Cells 3.32 10^6/uL (4.0-5.20); White Blood Cell 6.7 10^3/uL (4.4-10.8)
[2018-10-09 12:13] LABS: INR 1.03 (0.9-1.15); Partial Thromboplastin Time 25.9 sec (23.78-33.04)
[2018-10-09 12:14] LABS: Potassium 3.9 mmol/L (3.5-5.1)
[2018-10-09 12:27] LABS: BUN/Creatinine Ratio 30.9; Calcium 9.3 mg/dL (8.5-10.1)
== END | disposition home or self-care (01) ==
LOC: Rad HDHVI 08:57
PROVIDERS: ATTEND Internal Medicine Cardiovascular Disease
DX: Z01.812 Encounter for preprocedural laboratory examination (principal); I70.0 Atherosclerosis of aorta; D64.9 Anemia, unspecified; R79.1 Abnormal coagulation profile; I10 Essential (primary) hypertension
CPT/HCPCS: 36415; 71046; 80048; 85025; 85610; 85730; 93005; G0463

== ENCOUNTER 2018-10-11 08:29 | Day surgery (SDC) | payer MEDICARE, OTHER ==
[~2018-10-11] VITALS: Ht 152.4 cm; Wt 57.2 kg
[2018-10-11] MEDS ORDERED: IOHEXOL 350 MG/ML 100ML IJ ONE ×2 (10:47→10:52)
[2018-10-11] MEDS ORDERED: LIDOCAINE 2%HCL (LOCAL ANESTH.) INJ 20ML MDV ONE (10:47)
[2018-10-11] MEDS ORDERED: PHENYLEPHRINE HCL 10 MG/ML VL ONE (10:48)
[2018-10-11] MEDS ORDERED: GLYCOPYRROLATE 0.2 MG/ML 1ML VIAL ONE (10:48)
[2018-10-11] MEDS ORDERED: ATROPINE SULF 1 MG/10ml SYR ONE (10:52)
[2018-10-11] MEDS ORDERED: ANGIOMAX 250 MG VIAL IV ONE (10:52)
[2018-10-11] MEDS ORDERED: DOPamine 1600MCG/ML D5W 0 ML IV ONE (10:52)
[2018-10-11] MEDS ORDERED: SODIUM CHL 0.9% 0 ML ONE (10:52)
== END 2018-10-11 13:50 | disposition home or self-care (01) ==
LOC: CATH 08:29
PROVIDERS: ATTEND Internal Medicine Cardiovascular Disease
DX: I70.218 Atherosclerosis of native arteries of extremities with intermittent claudication, other extremity (principal); F41.9 Anxiety disorder, unspecified; F32.9 Major depressive disorder, single episode, unspecified; E78.00 Pure hypercholesterolemia, unspecified; J44.9 Chronic obstructive pulmonary disease, unspecified; E11.9 Type 2 diabetes mellitus without complications; R56.9 Unspecified convulsions; E78.5 Hyperlipidemia, unspecified; I11.0 Hypertensive heart disease with heart failure; Z82.49 Family history of ischemic heart disease and other diseases of the circulatory system; Z87.891 Personal history of nicotine dependence; Z88.0 Allergy status to penicillin; Z88.2 Allergy status to sulfonamides; Z88.6 Allergy status to analgesic agent; Z90.710 Acquired absence of both cervix and uterus; Z79.899 Other long term (current) drug therapy
CPT/HCPCS: 36223; A6257; C1760; C1894; J1644; J7030; Q9967; 99152

== ENCOUNTER → 2019-01-21 | Outpatient (CLI) | payer MEDICARE, OTHER ==
[2019-01-21 11:19] VITALS: BP 184/58
[2019-01-21 11:47] VITALS: BP 178/55
--- NOTE | 2019-01-21 11:47 | NUR ---
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 Pre-Op Discharge Summary: See e-MAR for any medications given for this visit. Pre-op orders received and carried out per MD of EKG, LABS and chest xrays. Patient given a copy of EKG with instructions to go to H out patient for further follow up care.
[2019-01-21 12:31] LABS: Calcium 9.7 mg/dL (8.5-10.1)
[2019-01-21 12:32] LABS: Eosinophils # (auto) 0.2 uL; Hemoglobin 11.3 g/dL (12.2-16.2); Lymphocytes # (auto) 1.7 uL; Monocytes # (auto) 0.9 uL; Neutrophils # (auto) 3.9 uL
[2019-01-21 12:35] LABS: BUN/Creatinine Ratio 17.9
[2019-01-21 12:36] LABS: Basophils # (auto) 0 uL; Basophils % (auto) 0.7 % (0.0-2.0); Eosinophils % (auto) 3.4 % (0.0-7.0); Lymphocytes % (auto) 25.4 % (10.0-50.0); Mean Corpuscular Hemoglobin 35.3 pg (28.0-32.0); Mean Corpuscular Hgb Conc. 33.4 g/dL (32.0-36.0); Mean Corpuscular Volume 105.8 fL (80.0-100.0); Monocytes % (auto) 13.5 % (0.0-12.0); Platelet Count (auto) 247 10^3/uL (140-450); Red Blood Cells 3.21 10^6/uL (4.0-5.20); Red Cell Distribution Width 12.9 % (11.8-14.3); White Blood Cell 6.8 10^3/uL (4.4-10.8)
[2019-01-21 12:48] LABS: Partial Thromboplastin Time 20.1 sec (23.78-33.04); Prothrombin Time 10.7 sec (9.27-12.13)
== END | disposition home or self-care (01) ==
LOC: Rad HDHVI 10:56
PROVIDERS: ATTEND Internal Medicine Cardiovascular Disease
DX: Z01.812 Encounter for preprocedural laboratory examination (principal); D64.9 Anemia, unspecified; R79.1 Abnormal coagulation profile; I10 Essential (primary) hypertension; R94.31 Abnormal electrocardiogram [ECG] [EKG]
CPT/HCPCS: 36415; 80048; 85025; 85610; 85730; 93005; G0463

== ENCOUNTER → 2019-01-24 | Day surgery (SDC) | payer MEDICARE, OTHER ==
[~2019-01-24] VITALS: Ht 154.9 cm; Wt 57.2 kg
[~2019-01-24] MED LIST changes: -CALC1TAB64 PO; -FERR-20 PO; +FLUMAZENIL 0.1 MG/ML INJ 10ML MDV IV ONE; -FLUT500M2 INH; +LIDOCAINE VISCOUS 2% 15ML UD MT ONE; +MIDAZOLAM HCL 1MG/1ML-2 ML VIAL ONE; +MIDAZOLAM HCL 5 MG/ML-1ML VIAL IV ONE; +NALOXONE HCL 0.4 MG/ML VIAL IV ONE; -TELM80TA3 PO; +cloNIDine HCL 0.1 MG TAB ONE; +cloNIDine HCL 0.1 MG TAB PO ONE; +fentaNYL CITRATE 100 MCG/2 ML VL IV ONE
== END | disposition home or self-care (01) ==
LOC: CATH 06:40
PROVIDERS: ATTEND Internal Medicine Cardiovascular Disease
DX: I70.0 Atherosclerosis of aorta (principal); I34.0 Nonrheumatic mitral (valve) insufficiency; J98.9 Respiratory disorder, unspecified; F32.9 Major depressive disorder, single episode, unspecified; F41.9 Anxiety disorder, unspecified; I10 Essential (primary) hypertension; Z98.890 Other specified postprocedural states; Z90.710 Acquired absence of both cervix and uterus; Z79.899 Other long term (current) drug therapy
CPT/HCPCS: 93312; J2250; J7030

== ENCOUNTER → 2019-02-26 | Outpatient (CLI) | payer MEDICARE, OTHER ==
[~2019-02-26] MED LIST changes: -FLUMAZENIL 0.1 MG/ML INJ 10ML MDV IV ONE; -LIDOCAINE VISCOUS 2% 15ML UD MT ONE; -MIDAZOLAM HCL 1MG/1ML-2 ML VIAL ONE; -MIDAZOLAM HCL 5 MG/ML-1ML VIAL IV ONE; -NALOXONE HCL 0.4 MG/ML VIAL IV ONE; -cloNIDine HCL 0.1 MG TAB ONE; -cloNIDine HCL 0.1 MG TAB PO ONE; -fentaNYL CITRATE 100 MCG/2 ML VL IV ONE
[2019-02-26 11:59] LABS: Basophils # (auto) 0.1 uL; Basophils % (auto) 0.9 % (0.0-2.0); Eosinophils # (auto) 0.4 uL; Eosinophils % (auto) 6.8 % (0.0-7.0); Nucleated Red Blood Cells % 0.1 %; Platelet Count (auto) 255 10^3/uL (140-450)
[2019-02-26 12:02] LABS: Hematocrit 36.6 % (36.0-46.0); Lymphocytes # (auto) 1.8 uL; Lymphocytes % (auto) 29.9 % (10.0-50.0); Mean Corpuscular Hgb Conc. 32.7 g/dL (32.0-36.0); Mean Corpuscular Volume 107.1 fL (80.0-100.0); Monocytes # (auto) 0.7 uL; Neutrophils # (auto) 3.1 uL; Neutrophils % (auto) 51.4 % (37.0-80.0); Red Blood Cells 3.42 10^6/uL (4.0-5.20); Red Cell Distribution Width 13.3 % (11.8-14.3); White Blood Cell 6.1 10^3/uL (4.4-10.8)
[2019-02-26 12:09] LABS: INR 1.02 (0.9-1.15); Partial Thromboplastin Time 23.2 sec (23.64-32.05)
[2019-02-26 12:36] LABS: Potassium 3.9 mmol/L (3.5-5.1)
[2019-02-26 12:44] LABS: Calcium 9.5 mg/dL (8.5-10.1)
== END | disposition home or self-care (01) ==
LOC: Rad HDHVI 08:59
PROVIDERS: ATTEND Internal Medicine Cardiovascular Disease
DX: Z01.818 Encounter for other preprocedural examination (principal); I70.0 Atherosclerosis of aorta; D64.9 Anemia, unspecified; R79.1 Abnormal coagulation profile; I10 Essential (primary) hypertension
CPT/HCPCS: 36415; 71046; 80048; 85025; 85610; 85730

== ENCOUNTER 2019-02-28 07:13 | Day surgery (SDC) | payer MEDICARE, OTHER ==
[~2019-02-28] VITALS: Ht 154.9 cm; Wt 57.2 kg
[2019-02-28] MEDS ORDERED: LEVO150T10 PO (08:21)
[2019-02-28] MEDS ORDERED: [UNRECOGNIZED DRUG - CODE] (08:23)
[2019-02-28] MEDS ORDERED: fentaNYL CITRATE 100 MCG/2 ML VL ONE (08:59)
[2019-02-28] MEDS ORDERED: ANGIOMAX 250 MG VIAL IV ONE (08:59)
[2019-02-28] MEDS ORDERED: LIDOCAINE 2%HCL (LOCAL ANESTH.) INJ 20ML MDV ONE (09:00)
[2019-02-28] MEDS ORDERED: SODIUM CHL 0.9% 0 ML ONE (09:00)
[2019-02-28] MEDS ORDERED: MIDAZOLAM HCL 1MG/1ML-2 ML VIAL ONE (09:00)
[2019-02-28] MEDS ORDERED: IOHEXOL 350 MG/ML 100ML IJ ONE (09:00)
[2019-02-28] MEDS ORDERED: ACETAMINOPHEN 325 MG TAB PO ONE (10:38)
== END 2019-02-28 12:37 | disposition home or self-care (01) ==
LOC: CATH 07:13
PROVIDERS: ATTEND Internal Medicine Cardiovascular Disease
DX: I25.10 Atherosclerotic heart disease of native coronary artery without angina pectoris (principal); I35.0 Nonrheumatic aortic (valve) stenosis; I10 Essential (primary) hypertension; E03.9 Hypothyroidism, unspecified; E78.5 Hyperlipidemia, unspecified; J44.9 Chronic obstructive pulmonary disease, unspecified; E11.9 Type 2 diabetes mellitus without complications; Z87.891 Personal history of nicotine dependence; Z79.899 Other long term (current) drug therapy; Z82.49 Family history of ischemic heart disease and other diseases of the circulatory system; Z88.0 Allergy status to penicillin; Z88.2 Allergy status to sulfonamides
CPT/HCPCS: 93460; C1894; J1644; J2250; J3010; J7030; Q9967; 99152

== ENCOUNTER → 2019-07-29 | Outpatient (CLI) | payer MEDICARE, OTHER ==
[~2019-07-29] MED LIST changes: -LEVO125T7 PO; +LEVO150T10 PO; +[UNRECOGNIZED DRUG - CODE]
== END | disposition home or self-care (01) ==
LOC: Rad HDHVI 15:58
PROVIDERS: ATTEND Internal Medicine Cardiovascular Disease
DX: M48.061 Spinal stenosis, lumbar region without neurogenic claudication (principal); M47.896 Other spondylosis, lumbar region; M51.26 Other intervertebral disc displacement, lumbar region; M12.88 Other specific arthropathies, not elsewhere classified, other specified site
CPT/HCPCS: 72131

== ENCOUNTER 2019-08-18 04:04 | Emergency (ER) | payer MEDICARE, OTHER ==
[~2019-08-18] VITALS: Ht 154.9 cm; Wt 55.3 kg
[2019-08-18] MEDS ORDERED: cloNIDine HCL 0.1 MG TAB PO ONE (04:30)
[2019-08-18 06:43] LABS: Basophils # (auto) 0 uL; Eosinophils # (auto) 0.1 uL; Lymphocytes # (auto) 1.4 uL; Monocytes # (auto) 0.7 uL; Neutrophils # (auto) 4.6 uL
[2019-08-18 06:47] LABS: Basophils % (auto) 0.4 % (0.0-2.0); Eosinophils % (auto) 1.6 % (0.0-7.0); Hematocrit 31.9 % (36.0-46.0); Mean Corpuscular Hemoglobin 36.4 pg (28.0-32.0); Mean Corpuscular Hgb Conc. 34.7 g/dL (32.0-36.0); Monocytes % (auto) 10.5 % (0.0-12.0); Neutrophils % (auto) 67.5 % (37.0-80.0); Platelet Count (auto) 127 10^3/uL (140-450); Red Blood Cells 3.04 10^6/uL (4.0-5.20); White Blood Cell 6.8 10^3/uL (4.4-10.8)
[2019-08-18 07:02] LABS: Albumin 3.1 g/dL (3.4-5.0); BUN/Creatinine Ratio 21.2; Calcium 7.9 mg/dL (8.5-10.1); Magnesium 1.5 mg/dL (1.6-2.6); Potassium 3.3 mmol/L (3.5-5.1)
[2019-08-18 07:07] LABS: Bilirubin, Total 0.4 mg/dL (0.2-1.0); Total Protein 6.9 g/dL (6.4-8.2)
[2019-08-18 07:52] VITALS: BP 135/86
[2019-08-18] MEDS ORDERED: POTASSIUM EFFERVESENT TAB 25 MEQ PO ONE (08:00)
[2019-08-18] MEDS ORDERED: LORazepam 0.5 MG TAB PO ONE (08:00)
[2019-08-18 09:14] LABS: INR 1.08 (0.9-1.15); Partial Thromboplastin Time 23.9 sec (23.64-32.05)
== END 2019-08-18 09:31 | disposition home or self-care (01) ==
LOC: EDBD 04:04 → ER 04:07
DX: I10 Essential (primary) hypertension (principal); E46 Unspecified protein-calorie malnutrition; Z68.23 Body mass index [BMI] 23.0-23.9, adult; E87.6 Hypokalemia; F41.9 Anxiety disorder, unspecified; F32.9 Major depressive disorder, single episode, unspecified; E11.9 Type 2 diabetes mellitus without complications; Z90.49 Acquired absence of other specified parts of digestive tract; Z90.710 Acquired absence of both cervix and uterus; Z90.89 Acquired absence of other organs
CPT/HCPCS: 36415; 80053; 83735; 84484; 85025; 85610; 85730; 93005

== ENCOUNTER → 2020-02-12 | Outpatient (CLI) | payer MEDICARE, OTHER ==
[2020-02-12 12:02] LABS: Eosinophils # (auto) 0.3 10 ^3/uL (0-0.8); Lymphocytes # (auto) 1.4 10 ^3/uL (0.4-5.4); Monocytes # (auto) 0.6 10 ^3/uL (0-1.3); Neutrophils # (auto) 2.6 10 ^3/uL (1.6-8.6); Nucleated Red Blood Cells % 0.1 %
[2020-02-12 12:06] LABS: Urine Blood Negative /uL (Negative); Urine Specific Gravity 1.022 (1.001-1.035)
[2020-02-12 12:07] LABS: Basophils # (auto) 0.1 10 ^3/uL (0-0.2); Hematocrit 36.3 % (36.0-46.0); Hemoglobin 12.2 g/dL (12.2-16.2); Lymphocytes % (auto) 27.9 % (10.0-50.0); Mean Corpuscular Hemoglobin 36.3 pg (28.0-32.0); Mean Corpuscular Hgb Conc. 33.6 g/dL (32.0-36.0); Monocytes % (auto) 11.8 % (0.0-12.0); Neutrophils % (auto) 52.3 % (37.0-80.0); Platelet Count (auto) 167 10^3/uL (140-450); Red Blood Cells 3.36 10^6/uL (4.0-5.20); Red Cell Distribution Width 12.7 % (11.8-14.3); White Blood Cell 4.9 10^3/uL (4.4-10.8)
[2020-02-12 12:12] LABS: Potassium 4.2 mmol/L (3.5-5.1)
[2020-02-12 12:17] LABS: Free T4 (Free Thyroxine) 1.06 ng/dL (0.89-1.76)
[2020-02-12 12:20] LABS: Albumin 3.5 g/dL (3.4-5.0); BUN/Creatinine Ratio 26.7; Bilirubin, Total 0.5 mg/dL (0.2-1.0); Calcium 9.4 mg/dL (8.5-10.1)
== END | disposition home or self-care (01) ==
LOC: LAB 08:26
PROVIDERS: ATTEND Internal Medicine Cardiovascular Disease
DX: E03.9 Hypothyroidism, unspecified (principal); K90.9 Intestinal malabsorption, unspecified; N39.0 Urinary tract infection, site not specified; D51.9 Vitamin B12 deficiency anemia, unspecified; Z00.00 Encounter for general adult medical examination without abnormal findings; Z79.899 Other long term (current) drug therapy
CPT/HCPCS: 36415; 80053; 80061; 81003; 82306; 82607; 83036; 84439; 84443; 85025; 87086

== ENCOUNTER → 2020-05-08 | Outpatient (CLI) | payer MEDICARE, OTHER | END | disposition home or self-care (01) | LOC: Rad HDHVI 10:11 | PROVIDERS: ATTEND Internal Medicine Cardiovascular Disease | DX: I50.43 Acute on chronic combined systolic (congestive) and diastolic (congestive) heart failure (principal); R00.2 Palpitations; R07.89 Other chest pain; E03.9 Hypothyroidism, unspecified; Z79.899 Other long term (current) drug therapy | CPT/HCPCS: 93306 ==

== ENCOUNTER → 2020-07-20 | Outpatient (CLI) | payer MEDICARE, OTHER | END | disposition home or self-care (01) | LOC: LAB 11:39 | PROVIDERS: ATTEND Internal Medicine | DX: N39.0 Urinary tract infection, site not specified (principal) | CPT/HCPCS: 87086; 87088; 87186 ==

== ENCOUNTER 2020-08-04 15:52 | Inpatient (IN) | payer MEDICARE, OTHER ==
[~2020-08-04] VITALS: Ht 154.9 cm; Wt 61.3 kg
[2020-08-04] MEDS ORDERED: SODIUM CHLORIDE 0.9% 1,000 ML IV ONE (17:00)
[2020-08-04] MEDS ORDERED: levoFLOXacin 500MG 100 ML IV ONE (17:00)
[2020-08-04 17:46] LABS: Basophils # (auto) 0 10 ^3/uL (0-0.2); Eosinophils # (auto) 0.1 10 ^3/uL (0-0.8); Hemoglobin 11.6 g/dL (12.2-16.2); Lymphocytes # (auto) 0.9 10 ^3/uL (0.4-5.4); Mean Corpuscular Volume 106.2 fL (80.0-100.0)
[2020-08-04 17:47] LABS: Basophils % (auto) 0.6 % (0.0-2.0); Hematocrit 34.3 % (36.0-46.0); Lymphocytes % (auto) 11.7 % (10.0-50.0); Mean Corpuscular Hgb Conc. 33.9 g/dL (32.0-36.0); Monocytes # (auto) 1.2 10 ^3/uL (0-1.3); Monocytes % (auto) 14.4 % (0.0-12.0); Neutrophils # (auto) 5.8 10 ^3/uL (1.6-8.6); Neutrophils % (auto) 72.3 % (37.0-80.0); Nucleated Red Blood Cells % 0.1 %; Platelet Count (auto) 263 10^3/uL (140-450); Red Blood Cells 3.23 10^6/uL (4.0-5.20); Red Cell Distribution Width 13.2 % (11.8-14.3)
[2020-08-04 18:07] LABS: Albumin 3.4 g/dL (3.4-5.0); Calcium 8.9 mg/dL (8.5-10.1); Potassium 3.8 mmol/L (3.5-5.1)
[2020-08-04 18:10] LABS: BUN/Creatinine Ratio 28.4
[2020-08-04 18:15] LABS: Bilirubin, Total 0.7 mg/dL (0.2-1.0); Total Protein 8.2 g/dL (6.4-8.2)
[2020-08-04 18:17] LABS: INR 1.15 (0.9-1.15); Partial Thromboplastin Time 24.5 sec (23.0-31.2)
[2020-08-04 21:06] LABS: Urine Bacteria NONE SEEN /hpf (None Seen); Urine Blood Negative /uL (Negative); Urine Hyaline Cast FEW /lpf (0 - 2); Urine Mucus FEW (None Seen); Urine Specific Gravity 1.021 (1.001-1.035); Urine WBC 2 /hpf (0 - 5)
[2020-08-04] MEDS ORDERED: NITROGLYCERIN 0.4 MG SL TAB SL PRN (21:45)
[2020-08-04] MEDS ORDERED: LORazepam 2MG/ML-1ML VIAL IV PRN (21:45)
[2020-08-04] MEDS ORDERED: MORPHINE SULF INJ 2 MG/ML SYRINGE 1ML IV PRN (21:45)
[2020-08-04] MEDS ORDERED: methylPREDNISolone SOD SUCC 125 MG/2 ML VL IV ONE (21:45)
[2020-08-04] MEDS: FUROSEMIDE 40 MG/4 ML VIAL IV SCH (22:19)
[2020-08-04] MEDS: POTASSIUM CHL 20 Meq TABLET PO SCH (22:21)
[2020-08-04] MEDS ORDERED: AZTREONAM 1GM INJ 0.5 GM in D5W 5% 50 ML IV SCH (22:22)
[2020-08-04] MEDS ORDERED: VANCOMYCIN 1GM/250ML 250 ML IV ONE (22:27)
[2020-08-04 22:40] VITALS: BP 146/66
--- NOTE | 2020-08-04 22:41 | NUR ---
Telemetry admit from ER RACHEL SELBY admitted to Telemetry unit after NO SBAR received. Patient oriented to MILANA JAUREGUI, RN primary RN, unit, room, bed, and unit policies regarding patient care and visiting hours. Patient now on continuous telemetry monitoring, tele box # [id number] and telemetry reading on arrival to unit is SR 80bpm. Patient placed on bedside oxygen, weighed by bedscale and encouraged to call if they need something. All questions and concerns addressed, patient verbalized understanding. Fall precautions in place and call light within reach. bed in low position
[2020-08-04 22:56] VITALS: BP 146/66
[2020-08-04] MEDS: AZTREONAM 1GM INJ 1 GM in D5W 5% 50 ML IV SCH (23:00)
[2020-08-05 04:43] VITALS: BP 139/72
[2020-08-05] MEDS: FUROSEMIDE 40 MG/4 ML VIAL IV SCH ×2 (06:03→17:15)
[2020-08-05] MEDS: LEVOTHYROXINE SODIUM 100 MCG TAB PO SCH (06:31)
--- NOTE | 2020-08-05 06:40 | NUR ---
second call to pharmacy to notify them medication scheduled at 0600 is not available. per pharmacy they will send medication.
[2020-08-05] MEDS: AZTREONAM 1GM INJ 1 GM in D5W 5% 50 ML IV SCH ×3 (06:51→22:28)
--- NOTE | 2020-08-05 07:05 | NUR ---
Call from pharmacy for clarification of vancomycin if MD wants medication to be one time or per pharmacy. will endorse care to dayshift rn
--- NOTE | 2020-08-05 07:28 | NUR ---
Report given to dayshift rn patient denies sob distress or pain
--- NOTE | 2020-08-05 07:45 | NUR ---
RECEIVED PATIENT ALERT AND ORIENTED X4, NOT IN DISTRESS, WHEEZING IN BILATERAL UPPER AND CLEAR IN LOWER LUNG LOBES, RR=18 SAT=95%, DEEP BREATHING AND COUGHING WAS ENCOURAGED, VERBALIZED UNDERSTANDING, SR R=72 ON TELE MONITOR, DENIED SOB AND CHEST PAIN, ABDOMEN SOFT WITH ACTIVE BS, LAST BM=08/04/20 REPORTED, SCABIES AND SCRATCHES ALL OVER THE BODY NOTED, RADIAL AND PEDAL PULSES PALPABLE, CAP REFILL <3 SECONDS, DENIED PAIN, RESTING ON BED, HEAD OF BED ELEVATED, BED ON LOW POSITION, RAILS UP X2, CALL LIGHT ON REACH, WILL CONTINUE MONITORING.
[2020-08-05 09:00] VITALS: BP 156/73
--- NOTE | 2020-08-05 09:09 | NUR ---
DR. MUSE CONTACTED FOR VANCOMYCIN IV DOSE AND TIME CLARIFICATION REQUESTED BY PHARMACY, NEW ORDER PENDING, PHARMACY WAS CONTACTED FOR UPDATES AND FOLLOW UP, WILL CONTINUE MONITORING.
[2020-08-05] MEDS: POTASSIUM CHL 20 Meq TABLET PO SCH ×2 (10:43→21:30)
[2020-08-05] MEDS: PANTOPRAZOLE 40 MG TAB PO SCH (10:43)
[2020-08-05 11:47] VITALS: BP 140/56
[2020-08-05 16:37] VITALS: BP 120/51
--- NOTE | 2020-08-05 19:21 | NUR ---
Opening Shift Note Assumed care of patient, awake and alert. No S/S of distress/SOB.Patient IV is infiltrated. IV DC'd with clean sterile technique, catheter fully intact. Pressure dressing applied to site. Patient tolerated well. Arm elevated and cool compress applied, per patient request.Bilateral radial pulses, skin is warm to touch bilateral capillary refill <3seconds.Instructed on POC and to call for assist PRN, will continue to monitor for changes Q1hr and PRN. Bed in low position and call light within reach
--- NOTE | 2020-08-05 19:21 | NUR ---
NOT IN DISTRESS, DENIED PAIN, RESTING ON BED, HEAD OF BED ELEVATED, BED ON LOW POSITION, RAILS UP X2, CALL LIGHT ON REACH, REPORT WAS GIVEN TO THE JAVA USER INTERFACE DEVELOPER RN.
--- NOTE | 2020-08-05 20:20 | NUR ---
IV insertion IV access obtained BY SANDI Ross via clean sterile technique by inserting 22 gauge catheter at right wrist after 1 attempt. IV secured properly. No trauma to site. Patient tolerated well.
[2020-08-05] MEDS: VANCOMYCIN 1GM/250ML 250 ML IV SCH (20:39)
[2020-08-05 21:44] VITALS: BP 127/52
[2020-08-06 05:03] VITALS: BP 146/72
[2020-08-06] MEDS: AZTREONAM 1GM INJ 1 GM in D5W 5% 50 ML IV SCH ×3 (05:23→22:25)
[2020-08-06 06:05] LABS: Hemoglobin 11.3 g/dL (12.2-16.2); White Blood Cell 6.4 10^3/uL (4.4-10.8)
[2020-08-06 06:07] LABS: Hematocrit 33.7 % (36.0-46.0); Mean Corpuscular Hemoglobin 35.7 pg (28.0-32.0); Mean Corpuscular Hgb Conc. 33.5 g/dL (32.0-36.0); Mean Corpuscular Volume 106.5 fL (80.0-100.0); Platelet Count (auto) 246 10^3/uL (140-450); Red Blood Cells 3.17 10^6/uL (4.0-5.20); Red Cell Distribution Width 13.4 % (11.8-14.3)
[2020-08-06] MEDS: LEVOTHYROXINE SODIUM 100 MCG TAB PO SCH (06:19)
[2020-08-06] MEDS: FUROSEMIDE 40 MG/4 ML VIAL IV SCH ×2 (06:21→18:06)
[2020-08-06 06:26] LABS: Potassium 4.2 mmol/L (3.5-5.1)
[2020-08-06 06:33] LABS: Band Neutrophils % (manual) 0; Basophils % (manual) 0 (0.0-2.0)
[2020-08-06 06:34] LABS: Blast Cells 0; Metamyelocytes % 0; Myelocytes % 0; Promyelocytes % 0; Reactive Lymphocytes 0
[2020-08-06 06:36] LABS: Albumin 3.1 g/dL (3.4-5.0); BUN/Creatinine Ratio 29.8; Bilirubin, Total 0.6 mg/dL (0.2-1.0); Calcium 8.5 mg/dL (8.5-10.1); Total Protein 7.4 g/dL (6.4-8.2)
[2020-08-06 07:04] LABS: Eosinophils % (manual) 10 (0-7); Lymphocytes % (manual) 21 (10.0-50.0); Monocytes % (manual) 13 (0-12)
--- NOTE | 2020-08-06 07:16 | NUR ---
report given to dayshift rn patient denies sob distress or pain
[2020-08-06] MEDS: PANTOPRAZOLE 40 MG TAB PO SCH (08:51)
[2020-08-06 08:52] VITALS: BP 157/75
[2020-08-06] MEDS: POTASSIUM CHL 20 Meq TABLET PO SCH ×2 (08:52→22:26)
[2020-08-06 13:00] VITALS: BP 153/61
--- NOTE | 2020-08-06 13:45 | NUR ---
assessment Patient is a 84 year old female who is alert and oriented. Patients cognitive abilities are intact. Prior to admission patient lived home with family and functioned independently. Patient informed me she is able to care for her own ADLs. Per patient she will return home to her prior living arrangements post discharge and family will transport her home. Patient has no need for DME prior to admission. Patients PCP is Dr Cook. Patient informed me she does not drive anymore so her family takes her shopping and to appointment. Patient has home health with [facility]. Patient will need a resumption order on discharge. I informed patient she has a right to speak to a social services specialist regarding all care. I informed patient she has a right to participate in any and all discharge planning. Patient has a POA and advanced directive. Patient verbalized understanding and agreed to discharge plan. Addendum: 08/06/20 at 1350 by Lou DAVIDSON Amended: Links added.
[2020-08-06 17:13] VITALS: BP 162/101
[2020-08-06] MEDS: VANCOMYCIN 1GM/250ML 250 ML IV SCH (20:27)
[2020-08-06 22:00] VITALS: BP 144/65
[2020-08-06] MEDS: KETOROLAC TROMETH 30 MG/ML 1ML VIAL IV PRN (22:26)
[2020-08-07 05:00] VITALS: BP 138/71
[2020-08-07] MEDS: FUROSEMIDE 40 MG/4 ML VIAL IV SCH ×2 (05:12→18:24)
[2020-08-07] MEDS: AZTREONAM 1GM INJ 1 GM in D5W 5% 50 ML IV SCH ×3 (05:13→23:05)
--- NOTE | 2020-08-07 05:49 | NUR ---
Spoke with Dr. Cook regarding patients pain. new orders received: Toradol 30 mg via IV q8hrs prn. orders read back and verified.
[2020-08-07] MEDS: LEVOTHYROXINE SODIUM 100 MCG TAB PO SCH (06:53)
--- NOTE | 2020-08-07 07:14 | NUR ---
closing note pt resting in semi fowlers with HOB at 30 degrees. no c/o of pain or discomfort at this time. pt is on 2Lnc. endorsed care to day shift SANDI Black.
[2020-08-07 09:00] VITALS: BP 125/80
[2020-08-07] MEDS: POTASSIUM CHL 20 Meq TABLET PO SCH ×2 (09:55→20:51)
[2020-08-07] MEDS: PANTOPRAZOLE 40 MG TAB PO SCH (09:56)
--- NOTE | 2020-08-07 11:07 | NUR ---
Spoke to patient daughter and son in law they were concerned because patient called them to tell them that she feels like her scabs are getting worse. The patient wanted me to talk to her daughter and son in law. I spoke with them they told me their concerns and said that they need to talk to that it has been 3 days that they have been asking to talk to the doctor. I updated them in the plan of care and also told them that I will talk to and make sure that they talk to I called and explained to him the concerns of the patient and family members. He asked for the phone number and told me that he will immediately call them to let them know exactly what is going.
--- NOTE | 2020-08-07 11:51 | NUR ---
Called back again to let him know that patient is still concerned about her lesions and that it is burning her. ordered Triamcinolone 0.5% apply BID to affected areas and also a surgical consult for the biopsy of the lesions.
[2020-08-07 13:00] VITALS: BP 127/99
--- NOTE | 2020-08-07 15:57 | NUR ---
Spoke to who said that the biopsy will be on monday. Patient needs to be NPO monday at midnight.
--- NOTE | 2020-08-07 16:46 | NUR ---
Spoke to who gave me the order to put prednisone 40mg PO q daily and also an order for a wound culture of patient's lesions.
[2020-08-07 17:00] VITALS: BP 156/73
--- NOTE | 2020-08-07 19:00 | NUR ---
Wound culture collected by AM nurse, was sent to lab by me.
[2020-08-07] MEDS: KETOROLAC TROMETH 30 MG/ML 1ML VIAL IV PRN (20:50)
[2020-08-07] MEDS: TRIAMCINOLONE ACET0.5% TOPICAL CRE 15GM TOP SCH (20:51)
[2020-08-07] MEDS: VANCOMYCIN 1GM/250ML 250 ML IV SCH (20:58)
[2020-08-07 21:10] VITALS: BP 166/72
[2020-08-08 05:02] VITALS: BP 126/62
[2020-08-08] MEDS: FUROSEMIDE 40 MG/4 ML VIAL IV SCH ×2 (05:49→18:04)
[2020-08-08] MEDS: LEVOTHYROXINE SODIUM 100 MCG TAB PO SCH (05:50)
[2020-08-08] MEDS: AZTREONAM 1GM INJ 1 GM in D5W 5% 50 ML IV SCH ×3 (05:50→22:00)
--- NOTE | 2020-08-08 06:00 | NUR ---
Wound dressing applied Pt left forearm began to show drainage, pt attemted to place tape and tissue paper on wound. I educated her not to do that, as it may make it worse. Cleansed wound with normal saline, pat dried, and applied optifoam non adhesive and wrapped with gauze role. Drainage was yellow, no odor, skin was red, and bleeding.
[2020-08-08 09:01] VITALS: BP 131/80
[2020-08-08] MEDS: TRIAMCINOLONE ACET0.5% TOPICAL CRE 15GM TOP SCH ×2 (10:06→21:08)
[2020-08-08] MEDS: POTASSIUM CHL 20 Meq TABLET PO SCH ×2 (10:07→21:07)
[2020-08-08] MEDS: PANTOPRAZOLE 40 MG TAB PO SCH (10:07)
[2020-08-08] MEDS: predniSONE 20 MG TAB PO SCH (10:07)
--- NOTE | 2020-08-08 12:00 | NUR ---
Nutrition Assessment Est energy needs 9267-6819 kcal (25-30 kcal/kg BW 60.1kg) Est protein needs 48-60g (0.8-1g/kg BW 60.1kg) Will monitor and reassess prn. Addendum: 08/08/20 at [address] Amended: Links added.
[2020-08-08 13:24] VITALS: BP 145/69
[2020-08-08] MEDS: KETOROLAC TROMETH 30 MG/ML 1ML VIAL IV PRN (14:59)
[2020-08-08 16:32] VITALS: BP 156/75
[2020-08-08] MEDS: VANCOMYCIN 1GM/250ML 250 ML IV SCH ×2 (21:00→21:08)
[2020-08-08 22:00] VITALS: BP 160/67
--- NOTE | 2020-08-09 00:08 | NUR ---
Attempted to start IV Previous Right upper arm IV infiltrated. Site showing some redness and swelling. Removed IV, and pressure dressing applied. Attempted to start new IV on left arm. 2 attempts total, but pt requested one more attempt on right wrist. Unable to start access" Pt verbalized "done for the night, will attempt in the morning".
--- NOTE | 2020-08-09 00:23 | NUR ---
Clarified Vancomycin order with Dr. Cook, Orders to continue Vancomycin, aware pt did not receive tonight antibiotic.
--- NOTE | 2020-08-09 00:46 | NUR ---
Paged by DR Cook New telephone order to D/C vancomycin and Azactam. New order to start doxycycline 100 mg po BID. Order verbalized and read back.
--- NOTE | 2020-08-09 04:00 | NUR ---
IV insertion Charge nurse successful attempt RFA IV 22g. Pt tolerated well, no bruising. 1 Attempt
[2020-08-09 05:00] VITALS: BP 142/70
[2020-08-09] MEDS: FUROSEMIDE 40 MG/4 ML VIAL IV SCH ×2 (05:38→18:11)
[2020-08-09] MEDS: LEVOTHYROXINE SODIUM 100 MCG TAB PO SCH (05:38)
[2020-08-09] MEDS: KETOROLAC TROMETH 30 MG/ML 1ML VIAL IV PRN ×2 (05:39→23:03)
--- NOTE | 2020-08-09 07:15 | NUR ---
Opening Shift Note Assumed care of patient, awake and alert. No S/S of distress/SOB or pain. Insructed on POC and to callfor assist PRN. Call light in reach, will continue to monitor for changes Q1hr and PRN. Bed alarm on
[2020-08-09 09:00] VITALS: BP 149/63
[2020-08-09] MEDS: predniSONE 20 MG TAB PO SCH (09:11)
[2020-08-09] MEDS: CLOPIDOGREL BISULFATE 75 MG TAB PO SCH (09:11)
[2020-08-09] MEDS: PANTOPRAZOLE 40 MG TAB PO SCH (09:11)
[2020-08-09] MEDS: DOXYCYCLINE 100 MG TAB/CAP PO SCH ×2 (09:11→22:53)
[2020-08-09] MEDS: POTASSIUM CHL 20 Meq TABLET PO SCH ×2 (09:12→22:53)
[2020-08-09] MEDS: TRIAMCINOLONE ACET0.5% TOPICAL CRE 15GM TOP SCH ×2 (09:12→22:53)
[2020-08-09 13:00] VITALS: BP 156/78
[2020-08-09 17:00] VITALS: BP 156/81
--- NOTE | 2020-08-09 19:43 | NUR ---
Paged Dr. Cook Pt reporting headache, and requested Tylenol. Also Pt verbalized "if her IV infiltrates again, I wont let anyone stick me again". New orders for tylenol 650mg po prn q4 for mild pain, and to change IV lasix 40mg BID to PO. Orders read back back and verified.
[2020-08-09] MEDS ORDERED: ACETAMINOPHEN 325 MG TAB PO PRN (19:45)
[2020-08-09 22:00] VITALS: BP 140/68
--- NOTE | 2020-08-09 22:00 | NUR ---
Educated pt regarding post op potential infection. Pt verbalized understanding
[2020-08-10 05:00] VITALS: BP 160/75
[2020-08-10] MEDS: LEVOTHYROXINE SODIUM 100 MCG TAB PO SCH (05:51)
[2020-08-10] MEDS: FUROSEMIDE 40 MG TAB PO SCH ×2 (05:51→18:04)
[2020-08-10 06:38] LABS: Basophils # (auto) 0.1 10 ^3/uL (0-0.2); Basophils % (auto) 1.3 % (0.0-2.0); Eosinophils # (auto) 0.2 10 ^3/uL (0-0.8); Monocytes # (auto) 0.8 10 ^3/uL (0-1.3); White Blood Cell 6.3 10^3/uL (4.4-10.8)
[2020-08-10 06:52] LABS: Eosinophils % (auto) 3.3 % (0.0-7.0); Hematocrit 36.3 % (36.0-46.0); Lymphocytes # (auto) 1.9 10 ^3/uL (0.4-5.4); Lymphocytes % (auto) 29.8 % (10.0-50.0); Mean Corpuscular Hemoglobin 35.6 pg (28.0-32.0); Mean Corpuscular Hgb Conc. 32.9 g/dL (32.0-36.0); Mean Corpuscular Volume 108.2 fL (80.0-100.0); Monocytes % (auto) 12.8 % (0.0-12.0); Neutrophils # (auto) 3.3 10 ^3/uL (1.6-8.6); Neutrophils % (auto) 52.8 % (37.0-80.0); Platelet Count (auto) 311 10^3/uL (140-450); Red Blood Cells 3.36 10^6/uL (4.0-5.20)
[2020-08-10 07:04] LABS: BUN/Creatinine Ratio 48.2; Calcium 8.9 mg/dL (8.5-10.1)
[2020-08-10 07:08] LABS: Potassium 5.8 mmol/L (3.5-5.1)
--- NOTE | 2020-08-10 07:09 | NUR ---
Critical lab Received phone call from Lab, per tailings dam laborer patients potassium is 5.8, called and spoke with doctor Joey ram MD of patients critical potassium, orders received to d/c potassium.
[2020-08-10] MEDS ORDERED: BUPIVACAINE 0.25% INJ 50ML VIAL ONE ×2 (08:11→11:22)
[2020-08-10] MEDS ORDERED: LIDOCAINE 1% HCL (LOCAL ANESTH.) INJ 20ML MDV ONE (08:11)
[2020-08-10] MEDS ORDERED: LIDOCAINE W/ EPINEPHRINE 1% 20ML VIAL ONE (08:11)
--- NOTE | 2020-08-10 08:30 | NUR ---
PATIENT TAKEN DOWN TO OR FOR A PROCEDURE.NO S/S OF DISTRESS NOTED.
[2020-08-10 08:44] VITALS: BP 142/69
[2020-08-10] MEDS: CLOPIDOGREL BISULFATE 75 MG TAB PO SCH (10:00)
[2020-08-10] MEDS ORDERED: levoFLOXacin 500MG 100 ML IV ONE (10:35)
[2020-08-10] MEDS ORDERED: fentaNYL CITRATE 100 MCG/2 ML VL ONE (10:51)
[2020-08-10] MEDS ORDERED: MEPERIDINE HCL (25 MG/ML) 1ML VIAL ONE (10:51)
[2020-08-10] MEDS ORDERED: MIDAZOLAM HCL 1MG/1ML-2 ML VIAL ONE (10:52)
[2020-08-10] MEDS ORDERED: DexAMETHasone SOD PHOS 10MG/1ML VIAL INJ ONE (11:30)
[2020-08-10] MEDS ORDERED: MIDAZOLAM HCL 1MG/1ML-2 ML VIAL IV PRN (11:45)
[2020-08-10] MEDS ORDERED: ONDANSETRON HCL 4 MG/2 ML VIAL IV PRN (11:45)
[2020-08-10] MEDS ORDERED: LABETALOL HCL 5 MG/ML 4ML SYRINGE IV PRN (11:45)
[2020-08-10] MEDS ORDERED: MORPHINE SULFATE 4 MG/ML SYR/VIAL IV PRN (11:45)
[2020-08-10] MEDS ORDERED: ePHEDrine SULFATE 50 MG/ML AMP IV PRN (11:45)
[2020-08-10] MEDS ORDERED: PROPOFOL 10 MG/ML 20 ML IV ONE (11:48)
--- NOTE | 2020-08-10 12:48 | NUR ---
Patient back from OR awake and alert. Respiration are even and unlabored V/S are WNL, no s/s of distress noted B/P 148/69 HR 78 O2 95% RR 18
[2020-08-10] MEDS: predniSONE 20 MG TAB PO SCH (16:21)
[2020-08-10] MEDS: TRIAMCINOLONE ACET0.5% TOPICAL CRE 15GM TOP SCH ×2 (16:21→22:10)
[2020-08-10] MEDS: PANTOPRAZOLE 40 MG TAB PO SCH (16:21)
[2020-08-10] MEDS: DOXYCYCLINE 100 MG TAB/CAP PO SCH ×2 (16:21→22:10)
[2020-08-10 17:08] VITALS: BP 149/91
[2020-08-10] MEDS: KETOROLAC TROMETH 30 MG/ML 1ML VIAL IV PRN (21:43)
[2020-08-10 22:00] VITALS: BP 132/91
[2020-08-11 05:00] VITALS: BP 132/87
[2020-08-11] MEDS: LEVOTHYROXINE SODIUM 100 MCG TAB PO SCH (06:29)
[2020-08-11] MEDS: FUROSEMIDE 40 MG TAB PO SCH (06:29)
[2020-08-11 07:14] LABS: Basophils # (auto) 0.1 10 ^3/uL (0-0.2); Basophils % (auto) 0.7 % (0.0-2.0); Eosinophils # (auto) 0 10 ^3/uL (0-0.8); Lymphocytes # (auto) 2.4 10 ^3/uL (0.4-5.4); Mean Corpuscular Volume 107.5 fL (80.0-100.0); Monocytes # (auto) 1.2 10 ^3/uL (0-1.3); Platelet Count (auto) 440 10^3/uL (140-450)
[2020-08-11 07:16] LABS: Eosinophils % (auto) 0.3 % (0.0-7.0); Hematocrit 38.2 % (36.0-46.0); Hemoglobin 12.9 g/dL (12.2-16.2); Lymphocytes % (auto) 24.5 % (10.0-50.0); Mean Corpuscular Hemoglobin 36.4 pg (28.0-32.0); Mean Corpuscular Hgb Conc. 33.8 g/dL (32.0-36.0); Monocytes % (auto) 12.5 % (0.0-12.0); Neutrophils # (auto) 6.1 10 ^3/uL (1.6-8.6); Nucleated Red Blood Cells % 0.1 %; Red Blood Cells 3.55 10^6/uL (4.0-5.20); Red Cell Distribution Width 13.1 % (11.8-14.3); White Blood Cell 9.9 10^3/uL (4.4-10.8)
[2020-08-11 07:29] LABS: BUN/Creatinine Ratio 49.6; Calcium 9.3 mg/dL (8.5-10.1); Potassium 4.7 mmol/L (3.5-5.1)
[2020-08-11 08:27] VITALS: BP 154/92
[2020-08-11] MEDS: DOXYCYCLINE 100 MG TAB/CAP PO SCH (09:18)
[2020-08-11] MEDS: CLOPIDOGREL BISULFATE 75 MG TAB PO SCH (09:18)
[2020-08-11] MEDS: PANTOPRAZOLE 40 MG TAB PO SCH (09:18)
[2020-08-11] MEDS: TRIAMCINOLONE ACET0.5% TOPICAL CRE 15GM TOP SCH (09:19)
[2020-08-11] MEDS: predniSONE 20 MG TAB PO SCH (09:19)
[2020-08-11 12:17] VITALS: BP 146/78
[2020-08-11 13:00] VITALS: BP 146/78
--- NOTE | 2020-08-11 16:10 | NUR ---
SS consult to resume HH with [facility] ( [phone]). Faxed clinical information to [facility] and pt accepted onto service. Pt will be seen 24 hours after discharge. No further SS concerns or needs.
--- NOTE | 2020-08-11 16:40 | NUR ---
Discharge instructions given as ordered. Encourage to follow up with PMD as instructed. All questions and concerns addressed. Patient verbalized understanding. IV removed with catheter intact, pressure dressing applied. Telemetry unit returned to ICU. Patient taken to vehicle via wheelchair with all personal belongings, accompanied by staff. Family member waiting in front lobby for transportation home. No distress noted at time of departure.
== END 2020-08-11 16:40 | disposition home health service (06) | DRG 871 ==
LOC: ER 15:52 → TELE 21:46 → TELE-CENTR 22:40
PROVIDERS: ADMIT Internal Medicine Cardiovascular Disease; ATTEND Internal Medicine Cardiovascular Disease
PROC: 0HBLXZX Excision of Left Lower Leg Skin, External Approach, Diagnostic (ICD-10-PCS; 2020-08-10)
PROC: 0HBEXZX Excision of Left Lower Arm Skin, External Approach, Diagnostic (ICD-10-PCS; principal; 2020-08-10 10:56)
DX: A41.9 Sepsis, unspecified organism (principal); I50.41 Acute combined systolic (congestive) and diastolic (congestive) heart failure; L03.116 Cellulitis of left lower limb; L97.829 Non-pressure chronic ulcer of other part of left lower leg with unspecified severity; E11.65 Type 2 diabetes mellitus with hyperglycemia; D64.9 Anemia, unspecified; E03.9 Hypothyroidism, unspecified; E78.5 Hyperlipidemia, unspecified; F41.9 Anxiety disorder, unspecified; G40.909 Epilepsy, unspecified, not intractable, without status epilepticus; I11.0 Hypertensive heart disease with heart failure; I25.10 Atherosclerotic heart disease of native coronary artery without angina pectoris; F32.9 Major depressive disorder, single episode, unspecified; J44.9 Chronic obstructive pulmonary disease, unspecified; L98.8 Other specified disorders of the skin and subcutaneous tissue; N19 Unspecified kidney failure; W57.XXXA Bitten or stung by nonvenomous insect and other nonvenomous arthropods, initial encounter; Z79.02 Long term (current) use of antithrombotics/antiplatelets; Z88.0 Allergy status to penicillin; Z90.710 Acquired absence of both cervix and uterus; Z90.49 Acquired absence of other specified parts of digestive tract; Y93.89 Activity, other specified; Y92.89 Other specified places as the place of occurrence of the external cause; Y99.8 Other external cause status; Z88.8 Allergy status to other drugs, medicaments and biological substances
CPT/HCPCS: 36415; 71046; 80048; 80053; 80185; 81001; 83520; 83605; 83880; 84132; 84484; 85007; 85025; 85027; 85610; 85652; 85730; 86225; 86235; 86256; 86850; 86900; 86901; 87040; 87205; 93005; 96365; G0378; J1100; J1885; J1956; J2001; J2250; J2704; J3490; J7060

== ENCOUNTER → 2020-08-19 | Outpatient (CLI) | payer MEDICARE, OTHER ==
[2020-08-19 15:06] VITALS: BP 161/55
[2020-08-19 16:14] VITALS: BP 155/59
== END | disposition home or self-care (01) ==
LOC: CHF HDHVI 16:02
PROVIDERS: ATTEND Internal Medicine Cardiovascular Disease
DX: T14.8XXA Other injury of unspecified body region, initial encounter (principal); X58.XXXA Exposure to other specified factors, initial encounter; Y93.89 Activity, other specified; Y92.89 Other specified places as the place of occurrence of the external cause; Y99.8 Other external cause status; Z98.890 Other specified postprocedural states
CPT/HCPCS: G0463

== ENCOUNTER → 2020-08-21 | Outpatient (CLI) | payer MEDICARE, OTHER ==
[~2020-08-21] MED LIST changes: +BACITRACIN TOP OINT 1 UD PKG TOP ONE
[2020-08-21 10:15] VITALS: BP 144/75
--- NOTE | 2020-08-21 10:15 | NUR ---
CLINIC PT ARRIVED TO THE [facility] FOR WOUND EVAL. PT WAS IN CLINIC ON Mon STRIPS WERE PLACED, A/OX4, AMBULATORY, BREATHING IS EVEN AND UNLABORED.
--- NOTE | 2020-08-21 10:30 | NUR ---
WOUND CARE DONE BY BENIGNO JUNIORSENIOR PEOPLESOFT DEVELOPER 1 SITE EVAL STERI STRIPS IN PLACE L INNER KNEE, SITE INTACT, PER MD DRESSING CHANGED OPTIFOAM PLACED OVER STERI STRIPS, TEGADERM PACED TO SECURE THEN WRAPPED IN COBAN. WOUND 2 L ARM BACITRACIN PLACED ON CLEAN WOUND DRESSED WITH NON STICK PAD COVERED WITH TEGADERM.
[2020-08-21 11:04] VITALS: BP 126/66
--- NOTE | 2020-08-21 11:04 | NUR ---
Discharge Instructions See e-MAR for any mediations given with this visit. Patient education given on disease process. Patient verbalized understanding. Previous labs reviewed. Patient discharged in stable condition with after care instructions and follow up appointment. NOTE WOUND CARE DONE BY SHANTE JUNIOR
== END | disposition home or self-care (01) ==
LOC: Rad HDHVI 10:12
PROVIDERS: ATTEND Internal Medicine Cardiovascular Disease
DX: S51.802A Unspecified open wound of left forearm, initial encounter (principal); S81.802A Unspecified open wound, left lower leg, initial encounter; X58.XXXA Exposure to other specified factors, initial encounter; Y93.89 Activity, other specified; Y92.89 Other specified places as the place of occurrence of the external cause; Y99.8 Other external cause status
CPT/HCPCS: G0463

== ENCOUNTER → 2020-08-25 | Outpatient (CLI) | payer MEDICARE, OTHER ==
[2020-08-25 10:03] VITALS: BP 147/42
--- NOTE | 2020-08-25 10:03 | NUR ---
CLINIC PT ARRIVED TO THE CLINIC FOR WOUND EVAL AND TX, L LEG S/P BIOPSY AND SUTURE REMOVAL AND L ARM. A/OX4, AMBULATORY, BREATHING IS EVEN AND UNLABORED. PT WAS ACCOMPANIED BY GRANDDAUGHTER.
--- NOTE | 2020-08-25 10:09 | NUR ---
WOUND CARE PT ARRIVED WITH DRESSING IN PLACE TO THE L LEG AND L ARM. DRESSINGS WERE REMOVED STERI STRIPS IN PLACE IN THE L LEG NO DRAINAGE NO ODOR, STERI STRIPS COVERED WITH 4X4 GAUZE THEN TEGADERM PLACED OVER TO SECURE THEN WRAPPED WITH COBAN. L FOREARM WAS CLEANED WITH NS, BACITRACIN APPLIED THEN COVERED WITH NON STICK PAD AND TEGADERM. PT TOLERATED WELL, AND ADVISED TO LIMIT BENDING TO THE L LEG ADS MUCH POSSIBLE. PT VERBALIZED UNDERSTANDING.
[2020-08-25 10:40] VITALS: BP 130/65
--- NOTE | 2020-08-25 10:40 | NUR ---
Discharge Instructions See e-MAR for any mediations given with this visit. Patient education given on disease process. Patient verbalized understanding. Previous labs reviewed. Patient discharged in stable condition with after care instructions and follow up appointment ON 09/02/20. NOTE WOUND CARE L LEG AND L FOREARM DONE BY DAWSON JUNIOR
== END | disposition home or self-care (01) ==
LOC: CHF HDHVI 10:21
PROVIDERS: ATTEND Internal Medicine Cardiovascular Disease
DX: S51.802A Unspecified open wound of left forearm, initial encounter (principal); S81.802A Unspecified open wound, left lower leg, initial encounter; X58.XXXA Exposure to other specified factors, initial encounter; Y93.89 Activity, other specified; Y92.89 Other specified places as the place of occurrence of the external cause; Y99.8 Other external cause status
CPT/HCPCS: G0463

== ENCOUNTER → 2020-09-02 | Outpatient (CLI) | payer MEDICARE, OTHER ==
[~2020-09-02] MED LIST changes: -BACITRACIN TOP OINT 1 UD PKG TOP ONE
[2020-09-02 15:02] VITALS: BP 118/80
--- NOTE | 2020-09-02 15:34 | NUR ---
WOUND CARE: PT. TO CLINIC FOR WOUND CARE PER MD ORDER PRIOR TO APPT.. PICTURES TAKEN OF GOOD HEALING WOUND FROM PREVIOUS BIOPSY LEFT INNER THIGH. EXISTING STERI STRIPS REMOVED . SITE CLEANED WITH NSS, CHLORAPREP, FOLLOWED BY NEW STERI STRIPS,THEN WITH GAUZE AND KERLEX BANDAGE. PT. TOLERATED PROCEDURE WELL.
[2020-09-02 15:40] VITALS: BP 141/60
--- NOTE | 2020-09-02 15:40 | NUR ---
Discharge Instructions See e-MAR for any mediations given with this visit. Patient education given on disease process. Patient verbalized understanding. Previous labs reviewed. Patient discharged in stable condition with after care instructions and follow up appointment.
== END | disposition home or self-care (01) ==
LOC: CHF HDHVI 15:23
PROVIDERS: ATTEND Internal Medicine Cardiovascular Disease
DX: E11.9 Type 2 diabetes mellitus without complications (principal); Z98.890 Other specified postprocedural states
CPT/HCPCS: G0463

== ENCOUNTER → 2020-09-08 | Emergency (ER) | payer MEDICARE, OTHER | END | disposition home or self-care (01) | LOC: ER 21:59 | DX: M79.606 Pain in leg, unspecified (principal); Z53.21 Procedure and treatment not carried out due to patient leaving prior to being seen by health care provider ==

== ENCOUNTER → 2020-09-10 | Outpatient (CLI) | payer MEDICARE, OTHER ==
[~2020-09-10] MED LIST changes: +VANCOMYCIN 1GM/250ML 250 ML IV ONE; +levoFLOXacin 500MG 100 ML IV ONE
[2020-09-10 11:23] VITALS: BP 169/91
--- NOTE | 2020-09-10 11:23 | NUR ---
CLINIC PT ARRIVED TO [facility] CLINIC FOR IV ANTIBIOTIC REGIMEN AND UNNA BOOT PER MD ORDERS FOR CELLULITIS TX. PT AMBULATORY WITH STEADY GAIT, A/OX4 ABLE TO FOLLOW COMMANDS AND BREATHING EVEN AND UNLABORED.
--- NOTE | 2020-09-10 11:55 | NUR ---
IV insertion IV access obtained, via clean sterile technique by inserting 22 gauge catheter at R WRIST after 2 attempt(s). IV secured properly. No trauma to site. Patient tolerated procedure well. LABS DRAWN AND SENT. NOTE IV STARTED BY SANDI SWENSON
--- NOTE | 2020-09-10 12:45 | NUR ---
PT RESTING IN CHAIR AND TOLERATING VANCO IV ANTIBIOTIC WELL, IV LINE INTACT WITH S/S OF INFILTRATION AND NO ADVERSE REACTION REPORTED. RN WILL CONTINUE TO MONITOR FOR S/S OF ADVERSE REACTION.
--- NOTE | 2020-09-10 14:16 | NUR ---
JILLIAN ABRAHAM APPLIED BY SUPRIYA REILLY PER MD GUZMAN
--- NOTE | 2020-09-10 14:28 | NUR ---
IV removal IV DC'd with sterile technique, catheter fully intact. Pressure dressing applied to site. Patient tolerated procedure well. Discharged with aftercare instructions per MD. NOTE: VANCOMYCIN IV [id number] ADMIN BY SANDI OSMAN LEVAQUIN IV [id number] ADMIN BY SANDI OSMAN WOUND CARE/UNNA BOOT ADMIN BY SUPRIYA REILLY
[2020-09-10 14:40] VITALS: BP 163/78
--- NOTE | 2020-09-10 14:40 | NUR ---
Discharge Instructions See e-MAR for any mediations given with this visit. Patient education given on disease process. Patient verbalized understanding. Previous labs reviewed. Patient discharged in stable condition with after care instructions and follow up appointment ON MONDAY. NOTE: VANCOMYCIN IV [id number] ADMIN BY SANDI OSMAN LEVAQUIN IV [id number] ADMIN BY SANDI OSMAN WOUND CARE/UNNA BOBAYLEE ADMIN BY SUPRIYA REILLY
[2020-09-10 15:54] LABS: Basophils # (auto) 0 10 ^3/uL (0-0.2); Basophils % (auto) 0.6 % (0.0-2.0); Eosinophils # (auto) 0.2 10 ^3/uL (0-0.8); Eosinophils % (auto) 3.2 % (0.0-7.0); Hematocrit 33.6 % (36.0-46.0); Hemoglobin 11.2 g/dL (12.2-16.2); Lymphocytes # (auto) 0.9 10 ^3/uL (0.4-5.4); Mean Corpuscular Hemoglobin 35.8 pg (28.0-32.0); Mean Corpuscular Hgb Conc. 33.3 g/dL (32.0-36.0); Mean Corpuscular Volume 107.4 fL (80.0-100.0); Monocytes # (auto) 0.7 10 ^3/uL (0-1.3); Monocytes % (auto) 11.5 % (0.0-12.0); Neutrophils % (auto) 69.7 % (37.0-80.0); Nucleated Red Blood Cells % 0.2 %; Platelet Count (auto) 243 10^3/uL (140-450); Red Blood Cells 3.13 10^6/uL (4.0-5.20); Red Cell Distribution Width 13.3 % (11.8-14.3); White Blood Cell 5.7 10^3/uL (4.4-10.8)
[2020-09-10 15:58] LABS: BUN/Creatinine Ratio 23.2; Calcium 8.8 mg/dL (8.5-10.1); Potassium 3.5 mmol/L (3.5-5.1)
== END | disposition home or self-care (01) ==
LOC: CHF HDHVI 11:24
PROVIDERS: ATTEND Internal Medicine Cardiovascular Disease
DX: I11.0 Hypertensive heart disease with heart failure (principal); I50.43 Acute on chronic combined systolic (congestive) and diastolic (congestive) heart failure; E11.9 Type 2 diabetes mellitus without complications; I25.10 Atherosclerotic heart disease of native coronary artery without angina pectoris; J44.9 Chronic obstructive pulmonary disease, unspecified; E78.5 Hyperlipidemia, unspecified; E03.9 Hypothyroidism, unspecified; F41.9 Anxiety disorder, unspecified; F32.9 Major depressive disorder, single episode, unspecified; Z79.02 Long term (current) use of antithrombotics/antiplatelets; Z90.49 Acquired absence of other specified parts of digestive tract; Z90.710 Acquired absence of both cervix and uterus
CPT/HCPCS: 36415; 80048; 85025; 96365; 96367; G0463; J1956; J3370

== ENCOUNTER → 2020-09-14 | Outpatient (CLI) | payer MEDICARE, OTHER ==
[~2020-09-14] MED LIST changes: -VANCOMYCIN 1GM/250ML 250 ML IV ONE; -levoFLOXacin 500MG 100 ML IV ONE
[2020-09-14 11:02] VITALS: BP 148/68
[2020-09-14 13:14] VITALS: BP 140/68
== END | disposition home or self-care (01) ==
LOC: CHF HDHVI 11:21
PROVIDERS: ATTEND Internal Medicine Cardiovascular Disease
DX: R60.0 Localized edema (principal)
CPT/HCPCS: G0463

== ENCOUNTER → 2020-09-16 | Outpatient (CLI) | payer MEDICARE, OTHER ==
[~2020-09-16] MED LIST changes: +BACITRACIN TOP OINT 1 UD PKG TOP ONE
[2020-09-16 16:24] VITALS: BP 165/60
== END | disposition home or self-care (01) ==
LOC: CHF HDHVI 15:39
PROVIDERS: ATTEND Internal Medicine Cardiovascular Disease
DX: S81.802D Unspecified open wound, left lower leg, subsequent encounter (principal); S81.801D Unspecified open wound, right lower leg, subsequent encounter; X58.XXXD Exposure to other specified factors, subsequent encounter
CPT/HCPCS: G0463

== ENCOUNTER → 2020-09-18 | Outpatient (CLI) | payer MEDICARE, OTHER ==
[~2020-09-18] MED LIST changes: -BACITRACIN TOP OINT 1 UD PKG TOP ONE
[2020-09-18 09:50] VITALS: BP 154/63
[2020-09-18 10:44] VITALS: BP 137/59
== END | disposition home or self-care (01) ==
LOC: CHF HDHVI 10:01
PROVIDERS: ATTEND Internal Medicine Cardiovascular Disease
DX: L03.90 Cellulitis, unspecified (principal); L98.9 Disorder of the skin and subcutaneous tissue, unspecified
CPT/HCPCS: G0463

== ENCOUNTER → 2020-09-21 | Outpatient (CLI) | payer MEDICARE, OTHER ==
[2020-09-21 14:00] VITALS: BP 164/87
[2020-09-21 14:48] VITALS: BP 161/77
== END | disposition home or self-care (01) ==
LOC: CHF HDHVI 14:17
PROVIDERS: ATTEND Internal Medicine Cardiovascular Disease
DX: S81.801A Unspecified open wound, right lower leg, initial encounter (principal); S81.802A Unspecified open wound, left lower leg, initial encounter; I50.43 Acute on chronic combined systolic (congestive) and diastolic (congestive) heart failure; X58.XXXA Exposure to other specified factors, initial encounter; Y93.89 Activity, other specified; Y92.89 Other specified places as the place of occurrence of the external cause; Y99.8 Other external cause status
CPT/HCPCS: G0463

== ENCOUNTER → 2020-09-23 | Outpatient (CLI) | payer MEDICARE, OTHER ==
[2020-09-23 14:45] VITALS: BP 160/72
[2020-09-23 15:45] VITALS: BP 152/57
== END | disposition home or self-care (01) ==
LOC: CHF HDHVI 14:49
PROVIDERS: ATTEND Internal Medicine Cardiovascular Disease
DX: S81.802D Unspecified open wound, left lower leg, subsequent encounter (principal); S81.801D Unspecified open wound, right lower leg, subsequent encounter; X58.XXXD Exposure to other specified factors, subsequent encounter; M54.9 Dorsalgia, unspecified
CPT/HCPCS: G0463

== ENCOUNTER → 2020-09-28 | Outpatient (CLI) | payer MEDICARE, OTHER ==
[~2020-09-28] MED LIST changes: +BACITRACIN TOP OINT 1 UD PKG TOP ONE
[2020-09-28 14:57] VITALS: BP 166/63
[2020-09-28 15:59] VITALS: BP 157/57
== END | disposition home or self-care (01) ==
LOC: CHF HDHVI 15:14
PROVIDERS: ATTEND Internal Medicine Cardiovascular Disease
DX: S81.802A Unspecified open wound, left lower leg, initial encounter (principal); S81.801A Unspecified open wound, right lower leg, initial encounter; L03.90 Cellulitis, unspecified; X58.XXXA Exposure to other specified factors, initial encounter; Y93.89 Activity, other specified; Y92.89 Other specified places as the place of occurrence of the external cause; Y99.8 Other external cause status
CPT/HCPCS: G0463

== ENCOUNTER → 2020-09-30 | Outpatient (CLI) | payer MEDICARE, OTHER ==
[~2020-09-30] VITALS: Ht 30.5 cm; Wt 0.5 kg
[2020-09-30 15:16] VITALS: BP 158/79
[2020-09-30 16:20] VITALS: BP 150/69
== END | disposition home or self-care (01) ==
LOC: CHF HDHVI 15:31
PROVIDERS: ATTEND Internal Medicine Cardiovascular Disease
DX: L03.90 Cellulitis, unspecified (principal)
CPT/HCPCS: G0463

== ENCOUNTER → 2020-10-05 | Outpatient (CLI) | payer MEDICARE, OTHER ==
[2020-10-05 15:10] VITALS: BP 163/58
[2020-10-05 16:33] VITALS: BP 179/59
== END | disposition home or self-care (01) ==
LOC: CHF HDHVI 15:07
PROVIDERS: ATTEND Internal Medicine Cardiovascular Disease
DX: R60.0 Localized edema (principal); R21 Rash and other nonspecific skin eruption
CPT/HCPCS: G0463

== ENCOUNTER → 2020-10-08 | Outpatient (CLI) | payer MEDICARE, OTHER ==
[~2020-10-08] MED LIST changes: -BACITRACIN TOP OINT 1 UD PKG TOP ONE
[2020-10-08 14:57] VITALS: BP 156/63
[2020-10-08 15:35] VITALS: BP 141/68
== END | disposition home or self-care (01) ==
LOC: CHF HDHVI 15:03
PROVIDERS: ATTEND Internal Medicine Cardiovascular Disease
DX: S81.802D Unspecified open wound, left lower leg, subsequent encounter (principal); S81.801D Unspecified open wound, right lower leg, subsequent encounter; X58.XXXD Exposure to other specified factors, subsequent encounter
CPT/HCPCS: G0463

== ENCOUNTER → 2020-10-12 | Outpatient (CLI) | payer MEDICARE, OTHER ==
[~2020-10-12] MED LIST changes: +BACITRACIN TOP OINT 1 UD PKG TOP ONE
[2020-10-12 15:00] VITALS: BP 179/58
[2020-10-12 16:15] VITALS: BP 160/78
== END | disposition home or self-care (01) ==
LOC: CHF HDHVI 15:21
PROVIDERS: ATTEND Internal Medicine Cardiovascular Disease
DX: S81.811D Laceration without foreign body, right lower leg, subsequent encounter (principal); S91.012D Laceration without foreign body, left ankle, subsequent encounter; R21 Rash and other nonspecific skin eruption; L03.90 Cellulitis, unspecified; X58.XXXD Exposure to other specified factors, subsequent encounter
CPT/HCPCS: G0463

== ENCOUNTER → 2020-10-15 | Outpatient (CLI) | payer MEDICARE, OTHER ==
[~2020-10-15] VITALS: Ht 30.5 cm; Wt 0.5 kg
[2020-10-15 13:44] VITALS: BP 153/60
[2020-10-15 14:10] VITALS: BP 166/58
== END | disposition home or self-care (01) ==
LOC: CHF HDHVI 13:45
PROVIDERS: ATTEND Internal Medicine Cardiovascular Disease
DX: S81.812D Laceration without foreign body, left lower leg, subsequent encounter (principal); X58.XXXD Exposure to other specified factors, subsequent encounter
CPT/HCPCS: G0463

== ENCOUNTER → 2021-07-05 | Outpatient (CLI) | payer MEDICARE, OTHER ==
[~2021-07-05] MED LIST changes: -BACITRACIN TOP OINT 1 UD PKG TOP ONE; -CLOP75TA41 PO; +CLOP75TA70 PO
== END | disposition home or self-care (01) ==
LOC: Rad HDHVI 10:58
PROVIDERS: ATTEND Internal Medicine Cardiovascular Disease
DX: R00.2 Palpitations (principal); E78.5 Hyperlipidemia, unspecified
CPT/HCPCS: 93306

== ENCOUNTER → 2021-07-21 | Outpatient (CLI) | payer MEDICARE, OTHER ==
[~2021-07-21] VITALS: Ht 153.7 cm; Wt 59.0 kg
[~2021-07-21] MED LIST changes: +ADENOSINE 90 MG/30 ML INJ IV ONE
[2021-07-21 11:35] LABS: Basophils # (auto) 0.1 10 ^3/uL (0-0.2); Eosinophils # (auto) 0.3 10 ^3/uL (0-0.8); Eosinophils % (auto) 5.9 % (0.0-7.0); Hemoglobin 12.7 g/dL (12.2-16.2); Monocytes # (auto) 0.7 10 ^3/uL (0-1.3); Neutrophils # (auto) 3.1 10 ^3/uL (1.6-8.6); Nucleated Red Blood Cells % 0.1 %
[2021-07-21 11:36] LABS: Urine Blood 3+ /uL (Negative); Urine Specific Gravity 1.022 (1.001-1.035)
[2021-07-21 11:39] LABS: Basophils % (auto) 1.2 % (0.0-2.0); Hematocrit 37.3 % (36.0-46.0); Lymphocytes # (auto) 1.5 10 ^3/uL (0.4-5.4); Lymphocytes % (auto) 26.3 % (10.0-50.0); Mean Corpuscular Hemoglobin 35.7 pg (28.0-32.0); Mean Corpuscular Hgb Conc. 34.1 g/dL (32.0-36.0); Mean Corpuscular Volume 104.6 fL (80.0-100.0); Monocytes % (auto) 11.9 % (0.0-12.0); Neutrophils % (auto) 54.7 % (37.0-80.0); Red Blood Cells 3.57 10^6/uL (4.0-5.20); Red Cell Distribution Width 12.6 % (11.8-14.3); White Blood Cell 5.7 10^3/uL (4.4-10.8)
[2021-07-21 11:49] LABS: Albumin 3.3 g/dL (3.4-5.0); Calcium 9.6 mg/dL (8.5-10.1); Potassium 3.9 mmol/L (3.5-5.1)
[2021-07-21 11:55] LABS: BUN/Creatinine Ratio 24.2; Bilirubin, Total 0.3 mg/dL (0.2-1.0); Total Protein 8.2 g/dL (6.4-8.2)
[2021-07-21 11:58] LABS: Free T4 (Free Thyroxine) 0.95 ng/dL (0.89-1.76)
== END | disposition home or self-care (01) ==
LOC: Rad HDHVI 09:24
PROVIDERS: ATTEND Internal Medicine Cardiovascular Disease
DX: I10 Essential (primary) hypertension (principal); D51.3 Other dietary vitamin B12 deficiency anemia; E11.9 Type 2 diabetes mellitus without complications; E78.5 Hyperlipidemia, unspecified; E55.9 Vitamin D deficiency, unspecified; D64.9 Anemia, unspecified; R00.2 Palpitations; R53.1 Weakness; R30.0 Dysuria
CPT/HCPCS: 36415; 78452; 80053; 80061; 81003; 82306; 82607; 83036; 84439; 84443; 85025; 87086; 93017; 96374; A9500; J0153

== ENCOUNTER 2021-10-30 13:00 | Emergency (ER) | payer MEDICARE, OTHER ==
[~2021-10-30] VITALS: Ht 154.9 cm; Wt 59.9 kg
[~2021-10-30 13:00] MED LIST changes: -ADENOSINE 90 MG/30 ML INJ IV ONE
[2021-10-30 14:14] LABS: Eosinophils # (auto) 0.2 10 ^3/uL (0-0.8); Hemoglobin 12.3 g/dL (12.2-16.2); Monocytes # (auto) 0.8 10 ^3/uL (0-1.3)
[2021-10-30 14:16] LABS: Basophils # (auto) 0 10 ^3/uL (0-0.2); Basophils % (auto) 0.7 % (0.0-2.0); Eosinophils % (auto) 3.4 % (0.0-7.0); Hematocrit 35.9 % (36.0-46.0); Lymphocytes # (auto) 1.6 10 ^3/uL (0.4-5.4); Lymphocytes % (auto) 24.1 % (10.0-50.0); Mean Corpuscular Hemoglobin 35.2 pg (28.0-32.0); Mean Corpuscular Hgb Conc. 34.1 g/dL (32.0-36.0); Monocytes % (auto) 11.5 % (0.0-12.0); Neutrophils % (auto) 60.3 % (37.0-80.0); Red Blood Cells 3.49 10^6/uL (4.0-5.20); White Blood Cell 6.6 10^3/uL (4.4-10.8)
[2021-10-30 14:25] LABS: Albumin 3.6 g/dL (3.4-5.0); Calcium 9.1 mg/dL (8.5-10.1)
[2021-10-30 14:32] LABS: BUN/Creatinine Ratio 22.8; Bilirubin, Total 0.3 mg/dL (0.2-1.0); Total Protein 8.1 g/dL (6.4-8.2)
[2021-10-30] MEDS ORDERED: LABETALOL HCL 5 MG/ML 4ML SYRINGE IV ONE (15:00)
[2021-10-30] MEDS ORDERED: LABETALOL HCL 5 MG/ML ML 20ML VIAL IV ONE (15:15)
[2021-10-30 16:02] LABS: Urine Bacteria FEW /hpf (None Seen); Urine Blood TRACE /uL (Negative); Urine Specific Gravity 1.017 (1.001-1.035); Urine WBC 4 /hpf (0 - 5)
[2021-10-30 17:00] VITALS: BP 149/66
== END 2021-10-30 18:21 | disposition home or self-care (01) ==
LOC: ER 13:00
DX: I10 Essential (primary) hypertension (principal); E11.9 Type 2 diabetes mellitus without complications; E78.5 Hyperlipidemia, unspecified; E01.8 Other iodine-deficiency related thyroid disorders and allied conditions; D75.89 Other specified diseases of blood and blood-forming organs; R06.02 Shortness of breath; G44.209 Tension-type headache, unspecified, not intractable; Z90.49 Acquired absence of other specified parts of digestive tract; Z90.710 Acquired absence of both cervix and uterus; Z90.89 Acquired absence of other organs; Z20.822 Contact with and (suspected) exposure to COVID-19
CPT/HCPCS: 36415; 70450; 71045; 80053; 81001; 84443; 84484; 85025; 87426; 93005; 96374

== ENCOUNTER → 2022-03-01 | Outpatient (CLI) | payer MEDICARE, OTHER ==
[2022-03-01 15:59] LABS: Urine Blood Negative /uL (Negative); Urine Specific Gravity 1.023 (1.001-1.035)
[2022-03-01 16:07] LABS: Basophils # (auto) 0 10 ^3/uL (0-0.2); Basophils % (auto) 0.9 % (0.0-2.0); Hemoglobin 11.8 g/dL (12.2-16.2); Lymphocytes # (auto) 1.2 10 ^3/uL (0.4-5.4); Monocytes # (auto) 0.5 10 ^3/uL (0-1.3); White Blood Cell 4.1 10^3/uL (4.4-10.8)
[2022-03-01 16:10] LABS: Eosinophils # (auto) 0.3 10 ^3/uL (0-0.8); Eosinophils % (auto) 6.6 % (0.0-7.0); Hematocrit 34.1 % (36.0-46.0); Lymphocytes % (auto) 28.7 % (10.0-50.0); Mean Corpuscular Hemoglobin 35.2 pg (28.0-32.0); Mean Corpuscular Hgb Conc. 34.6 g/dL (32.0-36.0); Mean Corpuscular Volume 101.8 fL (80.0-100.0); Monocytes % (auto) 12.3 % (0.0-12.0); Neutrophils # (auto) 2.1 10 ^3/uL (1.6-8.6); Neutrophils % (auto) 51.5 % (37.0-80.0); Nucleated Red Blood Cells % 0.2 %; Red Blood Cells 3.35 10^6/uL (4.0-5.20); Red Cell Distribution Width 12.8 % (11.8-14.3)
[2022-03-01 16:15] LABS: Potassium 4.1 mmol/L (3.5-5.1)
[2022-03-01 16:20] LABS: Free T4 (Free Thyroxine) 0.73 ng/dL (0.89-1.76)
[2022-03-01 16:24] LABS: Albumin 3.3 g/dL (3.4-5.0); BUN/Creatinine Ratio 16.1; Bilirubin, Total 0.3 mg/dL (0.2-1.0); Calcium 9.4 mg/dL (8.5-10.1); Total Protein 7.6 g/dL (6.4-8.2)
== END | disposition home or self-care (01) ==
LOC: LAB 08:35
PROVIDERS: ATTEND Internal Medicine Cardiovascular Disease
DX: D51.3 Other dietary vitamin B12 deficiency anemia (principal); D64.9 Anemia, unspecified; E11.9 Type 2 diabetes mellitus without complications; E55.9 Vitamin D deficiency, unspecified; I10 Essential (primary) hypertension; R00.2 Palpitations; R53.1 Weakness; R30.0 Dysuria
CPT/HCPCS: 36415; 80053; 80061; 81003; 82306; 82607; 83036; 84439; 84443; 85025; 87086

== ENCOUNTER → 2022-06-17 | Outpatient (CLI) | payer MEDICARE, OTHER ==
[~2022-06-17] MED LIST changes: +CIPR-173 PO; +LOP2C PO; +POTA10TA51 PO
== END | disposition home or self-care (01) ==
LOC: Rad HDHVI 14:48
PROVIDERS: ATTEND Internal Medicine Cardiovascular Disease
DX: I08.3 Combined rheumatic disorders of mitral, aortic and tricuspid valves (principal); I10 Essential (primary) hypertension; R06.02 Shortness of breath
CPT/HCPCS: 93306

== ENCOUNTER 2022-06-29 08:07 | Emergency (ER) | payer MEDICARE, OTHER ==
[~2022-06-29] VITALS: Ht 154.9 cm; Wt 64.5 kg
[~2022-06-29 08:07] MED LIST changes: -CIPR-173 PO; -LOP2C PO; -POTA10TA51 PO
[2022-06-29 08:58] LABS: Urine Bacteria MOD /hpf (None Seen); Urine Blood TRACE /uL (Negative); Urine Specific Gravity 1.019 (1.001-1.035); Urine WBC 17 /hpf (0 - 5)
[2022-06-29 09:48] LABS: Basophils # (auto) 0 10 ^3/uL (0-0.2); Basophils % (auto) 0.7 % (0.0-2.0); Eosinophils # (auto) 0.1 10 ^3/uL (0-0.8); Eosinophils % (auto) 2.8 % (0.0-7.0); Hematocrit 35.7 % (36.0-46.0); Hemoglobin 11.8 g/dL (12.2-16.2); Lymphocytes % (auto) 23.5 % (10.0-50.0); Mean Corpuscular Hemoglobin 33.5 pg (28.0-32.0); Mean Corpuscular Volume 101.5 fL (80.0-100.0); Monocytes # (auto) 0.5 10 ^3/uL (0-1.3); Monocytes % (auto) 10.7 % (0.0-12.0); Neutrophils # (auto) 2.7 10 ^3/uL (1.6-8.6); Neutrophils % (auto) 62.3 % (37.0-80.0); Red Blood Cells 3.52 10^6/uL (4.0-5.20); White Blood Cell 4.4 10^3/uL (4.4-10.8)
[2022-06-29 10:07] LABS: Calcium 8.8 mg/dL (8.5-10.1); Potassium 3.3 mmol/L (3.5-5.1)
[2022-06-29 10:13] LABS: Albumin 3.4 g/dL (3.4-5.0); BUN/Creatinine Ratio 13.4; Bilirubin, Total 0.4 mg/dL (0.2-1.0); Total Protein 7.2 g/dL (6.4-8.2)
[2022-06-29] MEDS ORDERED: cefTRIAXone 1GM/50ML D5W 50 ML IV ONE (11:15)
[2022-06-29] MEDS ORDERED: SODIUM CHLORIDE 0.9% 1,000 ML IV ONE (11:15)
[2022-06-29] MEDS ORDERED: MAGNESIUM SULFATE 1GM/100ML 100 ML IV SCH (16:00)
[2022-06-29] MEDS ORDERED: POTASSIUM EFFERVESENT TAB 25 MEQ PO ONE (16:00)
[2022-06-29] MEDS ORDERED: IOHEXOL 350 MG/ML 100ML IJ ONE (16:13)
[2022-06-29] MEDS ORDERED: CIPR-173 PO (18:12)
[2022-06-29 18:50] VITALS: BP 135/88
== END 2022-06-29 19:00 | disposition home or self-care (01) ==
LOC: EDBD 08:07 → ER 08:07
DX: R06.02 Shortness of breath (principal); J84.10 Pulmonary fibrosis, unspecified; N39.0 Urinary tract infection, site not specified; E87.6 Hypokalemia; E03.9 Hypothyroidism, unspecified; E83.42 Hypomagnesemia; R79.1 Abnormal coagulation profile; Z20.822 Contact with and (suspected) exposure to COVID-19
CPT/HCPCS: 36415; 71045; 71275; 80053; 81001; 83735; 84443; 84484; 85025; 85379; 87426; 93005; 96365; 99285; J0696; J7030; Q9967

== ENCOUNTER 2022-07-02 19:29 | Inpatient (IN) | payer MEDICARE, OTHER ==
[~2022-07-02] VITALS: Ht 157.5 cm; Wt 60.5 kg
[~2022-07-02 19:29] MED LIST changes: +CIPR-173 PO
[2022-07-02] MEDS ORDERED: SODIUM CHLORIDE 0.9% 1,000 ML IV ONE (20:00)
[2022-07-02 21:20] LABS: Basophils # (auto) 0.1 10 ^3/uL (0-0.2); Eosinophils # (auto) 0.1 10 ^3/uL (0-0.8); Eosinophils % (auto) 1.7 % (0.0-7.0); Hematocrit 32.8 % (36.0-46.0); Lymphocytes # (auto) 1.3 10 ^3/uL (0.4-5.4); Lymphocytes % (auto) 19.6 % (10.0-50.0); Mean Corpuscular Hemoglobin 33.7 pg (28.0-32.0); Mean Corpuscular Hgb Conc. 33.4 g/dL (32.0-36.0); Mean Corpuscular Volume 100.9 fL (80.0-100.0); Monocytes # (auto) 0.9 10 ^3/uL (0-1.3); Monocytes % (auto) 13.9 % (0.0-12.0); Neutrophils # (auto) 4.3 10 ^3/uL (1.6-8.6); Neutrophils % (auto) 63.8 % (37.0-80.0); Red Blood Cells 3.25 10^6/uL (4.0-5.20); Red Cell Distribution Width 12.9 % (11.8-14.3); White Blood Cell 6.7 10^3/uL (4.4-10.8)
[2022-07-02 21:37] LABS: INR 1.19 (0.9-1.15); Partial Thromboplastin Time 23.4 sec (24.6-33.4)
[2022-07-02 21:38] LABS: Albumin 3.3 g/dL (3.4-5.0); Calcium 8.1 mg/dL (8.5-10.1); Potassium 3.1 mmol/L (3.5-5.1)
[2022-07-02 21:43] LABS: Bilirubin, Total 0.4 mg/dL (0.2-1.0); Total Protein 6.5 g/dL (6.4-8.2)
[2022-07-02] MEDS ORDERED: FUROSEMIDE 40 MG/4 ML VIAL IV ONE (22:45)
[2022-07-02] MEDS ORDERED: ENOXAPARIN SOD 80 MG/0.8ML SYRINGE SC ONE (22:45)
[2022-07-02] MEDS ORDERED: ONDANSETRON HCL 4 MG/2 ML VIAL IV PRN (23:15)
[2022-07-02] MEDS ORDERED: HYDROcodone-ACET 5/325MG TAB PO PRN (23:15)
[2022-07-02] MEDS ORDERED: ACETAMINOPHEN 325 MG TAB PO PRN (23:15)
[2022-07-02] MEDS ORDERED: POTASSIUM CHL 20 Meq TABLET PO ONE (23:15)
[2022-07-02] MEDS ORDERED: DOCUSATE SOD 100 MG CAP PO PRN (23:15)
[2022-07-02] MEDS ORDERED: DEXTROSE (50%) 50ML SYRG IV PRN (23:15)
[2022-07-03] MEDS ORDERED: MORPHINE SULFATE INJ 2 MG/ml SYRG IV PRN
[2022-07-03] MEDS ORDERED: NITROGLYCERIN 0.4 MG SL TAB SL PRN
[2022-07-03] MEDS: hydrALAZINE HCL 20 MG/ML VL IV PRN (02:30)
[2022-07-03 03:01] LABS: Urine Bacteria NONE SEEN /hpf (None Seen); Urine Blood Negative /uL (Negative); Urine Hyaline Cast FEW /lpf (0 - 2); Urine Specific Gravity 1.006 (1.001-1.035); Urine WBC 1 /hpf (0 - 5)
[2022-07-03 03:22] VITALS: BP 166/45
[2022-07-03 05:18] VITALS: BP 184/57
[2022-07-03] MEDS: InsuLIN REG 1unit/0.01ml Soln (100units/ml) SC SCH ×4 (06:16→23:24)
[2022-07-03] MEDS: ACCU-CHEK COMFORT CURVE STRIP VI SCH ×4 (06:17→22:57)
[2022-07-03 06:53] LABS: Basophils # (auto) 0.1 10 ^3/uL (0-0.2); Basophils % (auto) 0.7 % (0.0-2.0); Eosinophils # (auto) 0.1 10 ^3/uL (0-0.8); Eosinophils % (auto) 0.9 % (0.0-7.0); Hematocrit 35.8 % (36.0-46.0); Lymphocytes # (auto) 1.5 10 ^3/uL (0.4-5.4); Lymphocytes % (auto) 18.8 % (10.0-50.0); Mean Corpuscular Hgb Conc. 33.6 g/dL (32.0-36.0); Monocytes # (auto) 1.1 10 ^3/uL (0-1.3); Monocytes % (auto) 13.8 % (0.0-12.0); Neutrophils # (auto) 5.1 10 ^3/uL (1.6-8.6); Neutrophils % (auto) 65.8 % (37.0-80.0); Nucleated Red Blood Cells % 0.1 %; Red Blood Cells 3.54 10^6/uL (4.0-5.20); White Blood Cell 7.7 10^3/uL (4.4-10.8)
[2022-07-03] MEDS ORDERED: LEVOTHYROXINE SODIUM 50 MCG TAB PO SCH (07:00)
[2022-07-03] MEDS: SODIUM CHLOR 0.9% PF (SALINE LOCK) 10ML VIAL/SYR IV SCH ×3 (07:11→22:56)
[2022-07-03 07:21] LABS: Albumin 3.6 g/dL (3.4-5.0); BUN/Creatinine Ratio 10.1; Calcium 8.5 mg/dL (8.5-10.1)
[2022-07-03 07:24] LABS: Bilirubin, Total 0.5 mg/dL (0.2-1.0); Total Protein 7.2 g/dL (6.4-8.2)
[2022-07-03 07:47] LABS: Potassium 2.8 mmol/L (3.5-5.1)
[2022-07-03] MEDS ORDERED: POTASSIUM EFFERVESENT TAB 25 MEQ PO ONE (08:00)
[2022-07-03 09:00] VITALS: BP 132/68
[2022-07-03] MEDS: FAMOTIDINE (10MG/ML) 2ML VL IV SCH ×2 (10:16→22:54)
[2022-07-03] MEDS: ASPirin 81 mg TAB PO SCH (10:18)
[2022-07-03] MEDS ORDERED: SPIRONOLACTONE 25 MG TAB PO ONE (11:00)
[2022-07-03] MEDS: FUROSEMIDE 20 MG/2 ML VIAL IV SCH (11:57)
[2022-07-03 13:00] VITALS: BP 158/59
[2022-07-03 17:00] VITALS: BP 145/72
[2022-07-03] MEDS: CHOLINE FENOFIBRATE PO SCH (18:00)
[2022-07-03 22:53] VITALS: BP 154/95
[2022-07-03] MEDS: ATORVASTATIN 20 MG TAB PO SCH (22:55)
[2022-07-03] MEDS: PHENYTOIN SODIUM 100 MG CAP PO SCH (22:55)
[2022-07-03] MEDS: diazePAM 5 MG TAB PO PRN (22:55)
[2022-07-04] MEDS: diazePAM 5 MG TAB PO PRN ×2 (02:32→21:26)
[2022-07-04] MEDS: SODIUM CHLOR 0.9% PF (SALINE LOCK) 10ML VIAL/SYR IV SCH ×3 (05:33→21:44)
[2022-07-04 05:39] VITALS: BP 166/57
[2022-07-04] MEDS: LEVOTHYROXINE SODIUM 100 MCG TAB PO SCH (05:49)
[2022-07-04] MEDS: ACCU-CHEK COMFORT CURVE STRIP VI SCH ×4 (05:50→21:44)
[2022-07-04] MEDS: InsuLIN REG 1unit/0.01ml Soln (100units/ml) SC SCH ×4 (05:50→21:45)
[2022-07-04 07:08] LABS: Basophils # (auto) 0 10 ^3/uL (0-0.2); Basophils % (auto) 0.9 % (0.0-2.0); Eosinophils # (auto) 0.2 10 ^3/uL (0-0.8); Eosinophils % (auto) 3.2 % (0.0-7.0); Hematocrit 33.9 % (36.0-46.0); Hemoglobin 11.3 g/dL (12.2-16.2); Lymphocytes # (auto) 1.1 10 ^3/uL (0.4-5.4); Lymphocytes % (auto) 22.5 % (10.0-50.0); Mean Corpuscular Hemoglobin 33.7 pg (28.0-32.0); Mean Corpuscular Hgb Conc. 33.4 g/dL (32.0-36.0); Monocytes # (auto) 0.7 10 ^3/uL (0-1.3); Monocytes % (auto) 14.4 % (0.0-12.0); Neutrophils # (auto) 2.9 10 ^3/uL (1.6-8.6); Nucleated Red Blood Cells % 0.1 %; Red Blood Cells 3.36 10^6/uL (4.0-5.20); White Blood Cell 4.8 10^3/uL (4.4-10.8)
[2022-07-04 07:17] LABS: Albumin 3.2 g/dL (3.4-5.0); BUN/Creatinine Ratio 16.5; Potassium 3.2 mmol/L (3.5-5.1)
[2022-07-04 07:20] LABS: Bilirubin, Total 0.4 mg/dL (0.2-1.0); Total Protein 6.4 g/dL (6.4-8.2)
[2022-07-04 08:25] VITALS: BP 175/59
[2022-07-04] MEDS: POTASSIUM CHL 20 Meq TABLET PO SCH (09:18)
[2022-07-04] MEDS: CLOPIDOGREL BISULFATE 75 MG TAB PO SCH (09:19)
[2022-07-04] MEDS: ASPirin 81 mg TAB PO SCH (09:19)
[2022-07-04] MEDS: PHENYTOIN SODIUM 100 MG CAP PO SCH ×2 (09:19→21:26)
[2022-07-04] MEDS: SERTRALINE HCL 50 MG TAB PO SCH (09:19)
[2022-07-04] MEDS: FAMOTIDINE (10MG/ML) 2ML VL IV SCH (09:20)
[2022-07-04] MEDS: FUROSEMIDE 20 MG/2 ML VIAL IV SCH (09:20)
[2022-07-04] MEDS: hydrALAZINE HCL 20 MG/ML VL IV PRN ×2 (12:00→18:49)
[2022-07-04 12:25] VITALS: BP 184/60
[2022-07-04 13:20] VITALS: BP 145/58
[2022-07-04 16:20] VITALS: BP 167/58
[2022-07-04] MEDS: CHOLINE FENOFIBRATE PO SCH (17:16)
[2022-07-04] MEDS: ATORVASTATIN 20 MG TAB PO SCH (21:25)
[2022-07-04 22:00] VITALS: BP 135/43
[2022-07-05] MEDS: hydrALAZINE HCL 20 MG/ML VL IV PRN (04:37)
[2022-07-05 05:00] VITALS: BP 171/64
[2022-07-05] MEDS: diazePAM 5 MG TAB PO PRN (05:38)
[2022-07-05] MEDS: SODIUM CHLOR 0.9% PF (SALINE LOCK) 10ML VIAL/SYR IV SCH ×2 (05:41→14:22)
[2022-07-05] MEDS: ACCU-CHEK COMFORT CURVE STRIP VI SCH ×3 (06:14→17:00)
[2022-07-05] MEDS: LEVOTHYROXINE SODIUM 100 MCG TAB PO SCH (06:14)
[2022-07-05] MEDS: InsuLIN REG 1unit/0.01ml Soln (100units/ml) SC SCH ×3 (06:15→17:00)
[2022-07-05 09:24] VITALS: BP 119/68
[2022-07-05] MEDS: CLOPIDOGREL BISULFATE 75 MG TAB PO SCH (09:28)
[2022-07-05] MEDS: ASPirin 81 mg TAB PO SCH (09:28)
[2022-07-05] MEDS: FUROSEMIDE 20 MG/2 ML VIAL IV SCH (09:28)
[2022-07-05] MEDS: PHENYTOIN SODIUM 100 MG CAP PO SCH (09:28)
[2022-07-05] MEDS: SERTRALINE HCL 50 MG TAB PO SCH (09:29)
[2022-07-05] MEDS: POTASSIUM CHL 20 Meq TABLET PO SCH (09:29)
[2022-07-05] MEDS ORDERED: POTA10TA51 PO (09:43)
[2022-07-05] MEDS ORDERED: LOP2C PO (09:51)
[2022-07-05 12:54] VITALS: BP 157/63
[2022-07-05 16:17] VITALS: BP 156/56
[2022-07-05] MEDS ORDERED: CHOLESTYRAMINE 4 GM POWDER GT SCH (23:00)
== END 2022-07-05 17:33 | disposition home health service (06) | DRG 280 ==
LOC: EDUNIT# 19:29 → ER 19:29 → EDBD 19:29 → TELE 23:53 → TELE-CENTR 07-03 02:56
PROVIDERS: ADMIT Nurse Practitioner Family; ATTEND Family Medicine
DX: I21.4 Non-ST elevation (NSTEMI) myocardial infarction (principal); I50.43 Acute on chronic combined systolic (congestive) and diastolic (congestive) heart failure; J98.11 Atelectasis; E03.9 Hypothyroidism, unspecified; E11.9 Type 2 diabetes mellitus without complications; E86.0 Dehydration; E87.6 Hypokalemia; G40.909 Epilepsy, unspecified, not intractable, without status epilepticus; I11.0 Hypertensive heart disease with heart failure; I25.10 Atherosclerotic heart disease of native coronary artery without angina pectoris; K52.9 Noninfective gastroenteritis and colitis, unspecified; Z88.0 Allergy status to penicillin; Z88.8 Allergy status to other drugs, medicaments and biological substances; Z87.440 Personal history of urinary (tract) infections; Z90.49 Acquired absence of other specified parts of digestive tract; Z90.710 Acquired absence of both cervix and uterus; Z95.2 Presence of prosthetic heart valve
CPT/HCPCS: 36415; 70450; 71045; 74176; 80053; 80185; 81001; 82962; 83036; 83880; 84443; 84484; 85025; 85610; 85730; 87045; 87081; 87427; 87493; 93005; 96361; 96372; 96374; 96375; 99291; G0378; J1815; J3490

== ENCOUNTER → 2022-07-18 | Outpatient (CLI) | payer MEDICARE, OTHER ==
[~2022-07-18] VITALS: Ht 154.9 cm; Wt 61.7 kg
[~2022-07-18] MED LIST changes: +ADENOSINE 52 MG in GIVE UN-DILUTED 0 ML IV ONE; +ADENOSINE 90 MG/30 ML INJ IV ONE; +LOP2C PO; +POTA10TA51 PO
== END | disposition home or self-care (01) ==
LOC: Rad HDHVI 08:50
PROVIDERS: ATTEND Internal Medicine Cardiovascular Disease
DX: I25.10 Atherosclerotic heart disease of native coronary artery without angina pectoris (principal); I11.0 Hypertensive heart disease with heart failure; I50.33 Acute on chronic diastolic (congestive) heart failure; R06.02 Shortness of breath; J44.9 Chronic obstructive pulmonary disease, unspecified; R42 Dizziness and giddiness; E78.5 Hyperlipidemia, unspecified; R60.9 Edema, unspecified
CPT/HCPCS: 78452; 93005; 96374; 96375; A9500; J0153

== ENCOUNTER → 2022-07-26 | Outpatient (CLI) | payer MEDICARE, OTHER ==
[~2022-07-26] MED LIST changes: -ADENOSINE 52 MG in GIVE UN-DILUTED 0 ML IV ONE; -ADENOSINE 90 MG/30 ML INJ IV ONE
[2022-07-26 12:15] LABS: Urine Blood Negative /uL (Negative); Urine Specific Gravity 1.014 (1.001-1.035)
[2022-07-26 12:16] LABS: Basophils # (auto) 0 10 ^3/uL (0-0.2); Eosinophils # (auto) 0.1 10 ^3/uL (0-0.8); Lymphocytes # (auto) 0.9 10 ^3/uL (0.4-5.4); Red Cell Distribution Width 12.9 % (11.8-14.3)
[2022-07-26 12:18] LABS: Basophils % (auto) 0.8 % (0.0-2.0); Eosinophils % (auto) 3.6 % (0.0-7.0); Hemoglobin 11.7 g/dL (12.2-16.2); Lymphocytes % (auto) 24.6 % (10.0-50.0); Mean Corpuscular Hemoglobin 34.4 pg (28.0-32.0); Mean Corpuscular Hgb Conc. 33.4 g/dL (32.0-36.0); Mean Corpuscular Volume 103.2 fL (80.0-100.0); Monocytes # (auto) 0.4 10 ^3/uL (0-1.3); Monocytes % (auto) 11.6 % (0.0-12.0); Neutrophils # (auto) 2.3 10 ^3/uL (1.6-8.6); Neutrophils % (auto) 59.4 % (37.0-80.0); Red Blood Cells 3.39 10^6/uL (4.0-5.20); White Blood Cell 3.8 10^3/uL (4.4-10.8)
[2022-07-26 12:32] LABS: Potassium 4.2 mmol/L (3.5-5.1)
[2022-07-26 12:44] LABS: Albumin 3.4 g/dL (3.4-5.0); BUN/Creatinine Ratio 18.9; Bilirubin, Total 0.4 mg/dL (0.2-1.0); Total Protein 7.6 g/dL (6.4-8.2)
[2022-07-26 12:47] LABS: Free T4 (Free Thyroxine) 1.17 ng/dL (0.89-1.76)
== END | disposition home or self-care (01) ==
LOC: LAB 08:16
PROVIDERS: ATTEND Internal Medicine Cardiovascular Disease
DX: I10 Essential (primary) hypertension (principal); E55.9 Vitamin D deficiency, unspecified; D51.3 Other dietary vitamin B12 deficiency anemia; D64.9 Anemia, unspecified; E11.9 Type 2 diabetes mellitus without complications; R00.2 Palpitations; R53.1 Weakness; R30.0 Dysuria
CPT/HCPCS: 36415; 80053; 80061; 81003; 82306; 82607; 84439; 84443; 85025; 87086

== ENCOUNTER 2023-01-01 04:35 | Emergency (ER) | payer MEDICARE, OTHER ==
[~2023-01-01] VITALS: Ht 157.5 cm; Wt 59.1 kg
[2023-01-01 05:43] LABS: Basophils # (auto) 0 10 ^3/uL (0-0.2); Basophils % (auto) 0.6 % (0.0-2.0); Eosinophils # (auto) 0.2 10 ^3/uL (0-0.8); Eosinophils % (auto) 2.7 % (0.0-7.0); Hematocrit 33.3 % (36.0-46.0); Hemoglobin 11.4 g/dL (12.2-16.2); Lymphocytes # (auto) 1.3 10 ^3/uL (0.4-5.4); Lymphocytes % (auto) 22.9 % (10.0-50.0); Mean Corpuscular Hemoglobin 34.4 pg (28.0-32.0); Mean Corpuscular Hgb Conc. 34.1 g/dL (32.0-36.0); Mean Corpuscular Volume 100.7 fL (80.0-100.0); Monocytes # (auto) 0.7 10 ^3/uL (0-1.3); Monocytes % (auto) 12.1 % (0.0-12.0); Neutrophils # (auto) 3.4 10 ^3/uL (1.6-8.6); Neutrophils % (auto) 61.7 % (37.0-80.0); Red Blood Cells 3.31 10^6/uL (4.0-5.20); Red Cell Distribution Width 12.6 % (11.8-14.3); White Blood Cell 5.6 10^3/uL (4.4-10.8)
[2023-01-01 06:04] LABS: Potassium 3.1 mmol/L (3.5-5.1)
[2023-01-01 06:11] LABS: Albumin 3.4 g/dL (3.4-5.0); BUN/Creatinine Ratio 15.2 (10.0-20.0); Bilirubin, Total 0.4 mg/dL (0.2-1.0); Calcium 8.6 mg/dL (8.5-10.1); Total Protein 6.8 g/dL (6.4-8.2)
[2023-01-01 06:53] LABS: INR 1.08 (0.9-1.15); Partial Thromboplastin Time 24.8 sec (24.6-33.4)
[2023-01-01] MEDS ORDERED: SODIUM CHLORIDE 0.9% 250 ML IV ONE (07:00)
[2023-01-01 08:28] LABS: Urine Bacteria FEW /hpf (None Seen); Urine Blood Negative /uL (Negative); Urine Specific Gravity 1.005 (1.001-1.035); Urine WBC 10 /hpf (0 - 5)
[2023-01-01] MEDS ORDERED: LORazepam 2MG/ML-1ML VIAL IV ONE (08:30)
[2023-01-01 11:00] VITALS: BP 120/58
[2023-01-01] MEDS ORDERED: CYANOCOBALAMIN 500 MCG TAB PO ONE (11:15)
[2023-01-01] MEDS ORDERED: ONDA-144 PO (11:44)
[2023-01-01] MEDS ORDERED: LEVO500T31 PO (11:44)
== END 2023-01-01 11:35 | disposition home or self-care (01) ==
LOC: EDBD 04:35 → ER 04:35
DX: N39.0 Urinary tract infection, site not specified (principal); R06.02 Shortness of breath; Z88.0 Allergy status to penicillin; Z88.2 Allergy status to sulfonamides; Z90.49 Acquired absence of other specified parts of digestive tract; Z90.710 Acquired absence of both cervix and uterus; Z20.822 Contact with and (suspected) exposure to COVID-19
CPT/HCPCS: 36415; 71045; 74176; 80053; 81001; 83615; 83880; 84484; 85025; 85610; 85730; 87426; 93005; 96374; 99285; J2060

== ENCOUNTER 2023-01-23 11:29 | Emergency (ER) | payer MEDICARE, OTHER ==
[~2023-01-23] VITALS: Ht 152.4 cm; Wt 59.0 kg
[~2023-01-23 11:29] MED LIST changes: +LEVO500T31 PO; +ONDA-144 PO
[2023-01-23] MEDS ORDERED: SODIUM CHLORIDE 0.9% 1,000 ML IV ONE (12:00)
[2023-01-23] MEDS ORDERED: cloNIDine HCL 0.1 MG TAB PO ONE (12:00)
[2023-01-23 12:57] LABS: Basophils # (auto) 0 10 ^3/uL (0-0.2); Eosinophils # (auto) 0.1 10 ^3/uL (0-0.8); Eosinophils % (auto) 1.5 % (0.0-7.0); Hemoglobin 12.7 g/dL (12.2-16.2); Lymphocytes # (auto) 1.1 10 ^3/uL (0.4-5.4); Monocytes # (auto) 0.6 10 ^3/uL (0-1.3); Red Blood Cells 3.73 10^6/uL (4.0-5.20)
[2023-01-23 12:58] LABS: Basophils % (auto) 0.3 % (0.0-2.0); Hematocrit 37.8 % (36.0-46.0); Lymphocytes % (auto) 21.4 % (10.0-50.0); Mean Corpuscular Hemoglobin 33.9 pg (28.0-32.0); Mean Corpuscular Hgb Conc. 33.5 g/dL (32.0-36.0); Mean Corpuscular Volume 101.3 fL (80.0-100.0); Monocytes % (auto) 11.7 % (0.0-12.0); Neutrophils # (auto) 3.2 10 ^3/uL (1.6-8.6); Neutrophils % (auto) 65.1 % (37.0-80.0); Red Cell Distribution Width 13.5 % (11.8-14.3); White Blood Cell 4.9 10^3/uL (4.4-10.8)
[2023-01-23 13:14] LABS: Albumin 3.6 g/dL (3.4-5.0); Calcium 9.4 mg/dL (8.5-10.1); Potassium 3.4 mmol/L (3.5-5.1)
[2023-01-23] MEDS ORDERED: KETOROLAC TROMETH 30 MG/ML 1ML VIAL IV ONE (13:15)
[2023-01-23] MEDS ORDERED: MORPHINE SULFATE 4 MG/ML SYR/VIAL IV ONE (13:15)
[2023-01-23 13:21] LABS: INR 1.04 (0.9-1.15); Partial Thromboplastin Time 24.7 sec (24.6-33.4)
[2023-01-23 13:29] LABS: BUN/Creatinine Ratio 14.1 (10.0-20.0); Bilirubin, Total 0.5 mg/dL (0.2-1.0); Total Protein 7.6 g/dL (6.4-8.2)
[2023-01-23] MEDS ORDERED: ONDA-144 SL (15:35)
[2023-01-23] MEDS ORDERED: LOPE2TAB99 PO (15:35)
[2023-01-23 18:29] VITALS: BP 169/71
== END 2023-01-23 19:34 | disposition home or self-care (01) ==
LOC: ER 11:29 → EDBD 11:29 → ER 19:21
DX: J90 Pleural effusion, not elsewhere classified (principal); E86.0 Dehydration; R42 Dizziness and giddiness; I10 Essential (primary) hypertension; K52.9 Noninfective gastroenteritis and colitis, unspecified; B34.9 Viral infection, unspecified; E11.9 Type 2 diabetes mellitus without complications; R06.02 Shortness of breath; Z90.49 Acquired absence of other specified parts of digestive tract; Z90.710 Acquired absence of both cervix and uterus; Z79.01 Long term (current) use of anticoagulants
CPT/HCPCS: 36415; 71045; 74176; 80053; 83880; 84484; 85025; 85610; 85730; 93005; 96361; 96374; 96375; 99285; J1885; J2270; J7030